=== PATIENT | female | born 1945 | race Caucasian/White ===

== ENCOUNTER 2017-11-18 19:04 | Inpatient (IN) | payer MEDICARE, MEDICAID ==
[2017-11-18 19:53] LABS: #Lymphocytes 0.8 thou/uL (1.20-3.40); #Monocytes 0.8 thou/uL (0.11-0.59); #Neutrophils 11.1 thou/uL (1.40-6.50); %Basophils 0.2 % (0.0-1.0); %Eosinophils 0.3 % (0.0-10.0); %Lymphocytes 6.3 % (21.0-51.0); %Monocytes 5.9 % (0.0-10.0); %Neutrophils 87.4 % (42.0-75.0); Hemoglobin 12.2 g/dL (12.0-16.0); Mean Corpuscular HGB CONC 33.2 g/dL (32.0-36.0); Mean Corpuscular Hemoglobin 31.1 pg (27.0-31.0); Mean Corpuscular Volume 93.8 fL (78.0-98.0); Mean Platelet Volume 7.9 fL (7.4-10.4); Platelet Count 219 thou/uL (130-400); RBC Distribution Width 12.4 % (11.5-14.5); Red Blood Cell (RBC) Count 3.91 mill/uL (4.20-5.40); White Blood Cell (WBC) Count 12.7 thou/uL (4.8-10.8)
[2017-11-18 20:13] LABS: ALT (SGPT) 11 U/L (8-55); AST (SGOT) 11 U/L (5-34); Albumin 3.6 g/dL (3.4-4.8); Alkaline Phosphatase 123 U/L (40-150); Anion Gap 14 mmol/L (10-20); BUN (Urea Nitrogen) 21 mg/dL (9.8-20.1); Bilirubin, Total 1.1 mg/dL (0.2-1.2); Calc. Creatinine Clearance 0 mL/min (70-130); Calcium 10.2 mg/dL (7.8-10.44); Carbon Dioxide 23 mmol/L (23-31); Chloride 107 mmol/L (98-107); Estimated GFR-MDRD 42; Globulin 3.7 g/dL (2.4-3.5); Glucose 165 mg/dL (83-110); Potassium 3.6 mmol/L (3.5-5.1); Protein, Total 7.3 g/dL (6.0-8.3); Sodium 140 mmol/L (136-145)
[2017-11-18 20:17] LABS: CKMB 0.2 ng/mL (0-6.6); Troponin I Less than 0.010 ng/mL (< 0.028)
[2017-11-18 20:18] LABS: Bilirubin Negative (Negative); Blood, Urine Moderate (Negative); Clarity TURBID (Clear); Glucose, Urine (Dipstick) Negative (Negative); Leukocyte Large (Negative); Nitrite Positive (Negative); Protein, Urine (Dipstick) 100 mg/dL (Neg-Trace); Specific Gravity, Urine 1.017 (1.002-1.036); pH, Urine 6.5 (5.0-9.0)
[2017-11-18 20:22] LABS: Bacteria/HPF 4+ HPF (None Seen); Hyaline Casts/LPF 4-6 HYALINE CAST LPF (0-3 Hyaline); Pathc Cast-AUWi Flag 0.69 (0-2.49); Squamous Epithelial None Seen HPF (0-3)
[2017-11-18 20:24] LABS: Yeast-AUWi Flag 140.6 (0-25.0)
[2017-11-18 20:35] LABS: Yeast-All Forms None Seen HPF (None Seen)
--- NOTE | 2017-11-18 20:55 | RAD ---
ONE VIEW CHEST 11/18/17 HISTORY: Fever. Urinary tract infection. COMPARISON: 09/09/17. FINDINGS: Normal cardiac silhouette. Pulmonary vessels and hilum are normal. Costophrenic angles are clear. No consolidation or mass. No pneumothorax or osseous abnormalities. Stable calcified granuloma in the left upper lobe. IMPRESSION: No acute cardiopulmonary process. POS: [facility]
[2017-11-18] MEDS ORDERED: cefTRIAXone\\ROCEPHIN 2 GM VIAL ONE (21:57)
[2017-11-18] MEDS ORDERED: Acetaminophen 325 MG TAB PO PRN (23:18)
[2017-11-18] MEDS ORDERED: Ondansetron HCl/PF 4 MG/2 ML Vial IVP PRN (23:18)
[2017-11-18] MEDS ORDERED: Ondansetron ODT 4 MG TAB SL PRN (23:18)
[2017-11-19] VITALS: BMI 34.0
[2017-11-19 06:06] LABS: #Eosinphils 0.1 thou/uL (0.0-0.7); #Lymphocytes 0.8 thou/uL (1.20-3.40); #Monocytes 0.8 thou/uL (0.11-0.59); #Neutrophils 8.7 thou/uL (1.40-6.50); %Basophils 0.3 % (0.0-1.0); %Eosinophils 0.6 % (0.0-10.0); %Monocytes 7.9 % (0.0-10.0); %Neutrophils 83.2 % (42.0-75.0); Hemoglobin 11.3 g/dL (12.0-16.0); Mean Corpuscular HGB CONC 33.2 g/dL (32.0-36.0); Mean Corpuscular Hemoglobin 30.8 pg (27.0-31.0); Mean Corpuscular Volume 92.7 fL (78.0-98.0); Mean Platelet Volume 8.1 fL (7.4-10.4); Platelet Count 201 thou/uL (130-400); RBC Distribution Width 12.5 % (11.5-14.5); Red Blood Cell (RBC) Count 3.68 mill/uL (4.20-5.40); White Blood Cell (WBC) Count 10.4 thou/uL (4.8-10.8)
[2017-11-19 06:09] LABS: Anion Gap 12 mmol/L (10-20); BUN (Urea Nitrogen) 18 mg/dL (9.8-20.1); Calc. Creatinine Clearance 75 mL/min (70-130); Carbon Dioxide 24 mmol/L (23-31); Chloride 109 mmol/L (98-107); Estimated GFR-MDRD 55; Glucose 133 mg/dL (83-110); Potassium 3.6 mmol/L (3.5-5.1); Sodium 141 mmol/L (136-145)
[2017-11-19] MEDS: Sodium Chloride 0.9% 1,000 ML IV SCH ×2 (06:35→16:11)
[2017-11-19] MEDS: Atorvastatin Calcium 20 MG TAB PO SCH (08:27)
[2017-11-19] MEDS: Aspirin 81 mg Enteric Coated Tablet PO SCH (08:27)
[2017-11-19] MEDS: Docusate 100 MG CAP PO SCH ×2 (08:27→20:20)
[2017-11-19] MEDS: Heparin 5,000 UNITS/ML VIAL SC SCH ×3 (08:27→20:20)
[2017-11-19] MEDS: Calcium Carbonate + Vit D 1 TAB PO SCH ×2 (08:27→20:20)
--- NOTE | 2017-11-19 12:09 | HP ---
CHIEF COMPLAINT: Fever. HISTORY OF PRESENT ILLNESS: The patient is a 72-year-old female with past medical history of hyperte nsion and UTIs, who [facility] with a fever of 101.9. The patient is a poor hist orian and most of the history is obtained from the records. The patient currently is unable to provi de any information. PAST MEDICAL HISTORY: History of GERD, hypertension, dementia, and UTI. PAST SURGICAL HISTORY: None. REVIEW OF SYSTEMS: Unable to obtain since the patient has history of dementia. ALLERGIES: No known drug allergies. SOCIAL HISTORY: [facility] a [facility] resident. No alcohol, drug use or smoking history. CURRENT MEDICATIONS: From the records, Tylenol 325 daily, Lasix 20 mg daily. PHYSICAL EXAMINATION: VITAL SIGNS: Temperature of 101.8 this is in the ER, respirations of 16, pulse of 105, 97% on room a ir, and blood pressure was 139/80. GENERAL: She is awake, alert, oriented only to self. CARDIOVASCULAR: S1, S2 present. No murmurs, rubs or gallops. HEENT: The patient appears to be very severely dehydrated. Oral mucous membranes are very dehydrate d. LUNGS: Clear to auscultation. No rhonchi, wheezes noted. ABDOMEN: Soft, nontender. Bowel sounds are present x2. No hepatomegaly, splenomegaly noted. EXTREMITIES: No edema. Pedal pulses present x2. NEUROLOGIC: I initially thought that she did have some weakness on her left upper extremity; however , the patient has a pretty good tattooer on her bilateral upper extremities. LABORATORY DATA: WBCs of 10.4, hemoglobin 11.3, hematocrit 34.1, platelets of 201. Chemistry: S[place] um 141, potassium of 3.6, BUN of 18 and creatinine 0.99, glucose of 133. Her urine indicated positiv e for nitrites. She did also have a chest x-ray which did not show any acute abnormalities upon my i nterpretation. ASSESSMENT AND PLAN: The patient is a very pleasant 72-year-old female who was [facility] the hosp [facility] for fever. 1. Urinary tract infection. The patient does have positive nitrites. Her last urine culture indica campbell E. coli, which was sensitive to ceftriaxone. We will start patient on ceftriaxone. We will also start the patient on some gentle IV hydration and await cultures. 2. Dehydration. We will start the patient on some IV fluids. Continue to monitor. 3. History of dementia. We will also order some physical therapy and occupational therapy. 4. Deep venous thrombosis prophylaxis. We will put patient on subcu heparin.
--- NOTE | 2017-11-19 13:03 | PDOC.EVN ---
Event Note - Event Note Event Note: 72 F with a h/o dementia brought to the emergency room on account of fever and dehydration and found to have UTI. Has been started on hydration and IV ceftriaxone. Seen and examined. Will follow up cultures. Patient hemodynamically stable.
[2017-11-19] MEDS ORDERED: Acetaminophen 650 MG Suppository PR PRN (15:52)
[2017-11-19] MEDS: Acetaminophen 325 MG TAB PO PRN (16:10)
[2017-11-19] MEDS: Piperacillin/Tazobactam 3.375 GM in Sodium Chloride 0.9% 100 ML IVPB SCH ×2 (16:10→20:20)
[2017-11-19] MEDS ORDERED: cefTRIAXone\\ROCEPHIN 1 GM in Sodium Chloride 0.9% 100 ML IVPB SCH (21:00)
[2017-11-20] MEDS: Piperacillin/Tazobactam 3.375 GM in Sodium Chloride 0.9% 100 ML IVPB SCH (03:38)
[2017-11-20] MEDS: Sodium Chloride 0.9% 1,000 ML IV SCH ×3 (03:38→23:52)
[2017-11-20] MEDS: Acetaminophen 325 MG TAB PO PRN (04:40)
[2017-11-20] MEDS ORDERED: Artificial Tears 18 DROP/0.9 ML EA EYE PRN (08:05)
[2017-11-20] MEDS ORDERED: Mag-Al 1200 mg/1200 mg/30 ML UDCUP PO PRN (08:05)
[2017-11-20] MEDS ORDERED: Ondansetron HCl/PF 4 MG/2 ML Vial IVP PRN (08:05)
[2017-11-20] MEDS ORDERED: Zolpidem Tartrate 5 MG TAB PO PRN (08:05)
[2017-11-20] MEDS ORDERED: Eucerin (Mineral Oil/Petrolatum,White) 30 gm Jar TOP PRN (08:05)
[2017-11-20] MEDS ORDERED: Chloraseptic Spray 180 ml Bottle PO PRN (08:05)
[2017-11-20] MEDS ORDERED: HYDROcodone/Acetaminophen 5/325 mg Tablet PO PRN (08:05)
[2017-11-20] MEDS ORDERED: Sodium Chloride 0.65% Nasal 44 ML BOT EA NARE PRN (08:05)
[2017-11-20] MEDS ORDERED: Ondansetron ODT 4 MG TAB PO PRN (08:05)
[2017-11-20] MEDS ORDERED: Milk Of Magnesia 30 ML UDCUP PO PRN (08:05)
[2017-11-20] MEDS ORDERED: Diabetic Tussin 200 MG/10 ML UDCUP PO PRN (08:05)
[2017-11-20] MEDS ORDERED: hydrALAZINE 20 MG/ML VIAL SLOW IVP PRN (08:05)
[2017-11-20] MEDS ORDERED: Loratadine 10 MG TAB PO PRN (08:05)
[2017-11-20] MEDS: Docusate 100 MG CAP PO SCH ×2 (09:00→21:25)
[2017-11-20] MEDS: Saccharomyces boulardii 250 MG CAP PO SCH (09:00)
[2017-11-20] MEDS: Atorvastatin Calcium 20 MG TAB PO SCH (09:00)
[2017-11-20] MEDS: Polyethylene Glycol 3350 17 GM Packet PO SCH (09:00)
[2017-11-20] MEDS: Famotidine 20 MG TAB PO SCH ×2 (09:00→21:25)
[2017-11-20] MEDS ORDERED: Prevnar 13-Val Conj/PF 0.5 ML SYRINGE IM ONE (09:00)
[2017-11-20] MEDS: Heparin 5,000 UNITS/ML VIAL SC SCH ×2 (09:00→21:25)
[2017-11-20] MEDS: Aspirin 81 mg Enteric Coated Tablet PO SCH (09:00)
[2017-11-20] MEDS: Calcium Carbonate + Vit D 1 TAB PO SCH ×2 (09:00→21:25)
--- NOTE | 2017-11-20 11:19 | PDOC.PN ---
- Subjective Encounter Start Date: 11/20/17 Encounter Start Time: 07:20 -: old records requested/rev Patient seen and examined for uti. No new complaints. No overnight events - Objective Resuscitation Status: Resuscitation Status FULL:Full Resuscitation MAR Reviewed: Yes Vital Signs & Weight: Vital Signs (12 hours) Temp Pulse Resp BP Pulse Ox 11/20/17 08:50 98.8 F 88 22 H 132/57 L 96 11/20/17 04:00 101.7 F H 91 16 135/70 95 Weight Weight 207 lb 1.6 oz I&O: 11/19/17 11/20/17 11/21/17 06:59 06:59 06:59 Intake Total 100 1600 Balance 100 1600 Result Diagrams: 11/19/17 05:26 11/19/17 05:26 EKG Reviewed by me: Yes (nsr) Phys Exam - Physical Examination Constitutional: NAD HEENT: PERRLA, moist MMs, sclera anicteric Neck: no JVD, supple Respiratory: no wheezing, no rales, no rhonchi Cardiovascular: RRR, no significant murmur, no rub Gastrointestinal: soft, non-tender, no distention, positive bowel sounds umbilical hernia Musculoskeletal: no edema, pulses present Neurological: non-focal, normal sensation Psychiatric: normal affect Skin: no rash, normal turgor Dx/Plan (1) Acute kidney injury Code(s): N17.9 - ACUTE KIDNEY FAILURE, UNSPECIFIED Status: Acute (2) Bacteremia, escherichia coli Code(s): R78.81 - BACTEREMIA Status: Acute (3) Dehydration Code(s): E86.0 - DEHYDRATION Status: Acute (4) E. coli UTI Code(s): N39.0 - URINARY TRACT INFECTION, SITE NOT SPECIFIED; B96.20 - UNSP ESCHERICHIA COLI THE CAUSE OF DISEASES CLASSD ELSWHR Status: Acute (5) Sepsis due to Escherichia coli Code(s): A41.51 - SEPSIS DUE TO ESCHERICHIA COLI [E. COLI] Status: Acute (6) Dyslipidemia Code(s): E78.5 - HYPERLIPIDEMIA, UNSPECIFIED Status: Chronic (7) Hypertension Code(s): I10 - ESSENTIAL (PRIMARY) HYPERTENSION Status: Chronic (8) Obesity (BMI 30-39.9) Code(s): E66.9 - OBESITY, UNSPECIFIED Status: Chronic - Plan cont current plan of care, plan discussed w/ family, continue antibiotics * will change antibiotics to IV cipro based on C & S result * discussed with brother on phone * medication reviewed as below * symptomatic treatment * will repeat blood culture tomorrow and labs. Review of Systems - Review of Systems Other: not reliable with pt based on her level of cognitive status which seems baseline for pt - Medications/Allergies Allergies/Adverse Reactions: Allergies Allergy/AdvReac Type Severity Reaction Status Date / Time No Known Drug Allergies Allergy Verified 11/19/17 01:53 Medications: Current Medications Acetaminophen (Tylenol) 650 mg [place] Q4H PRN PRN Reason: Headache/Fever or Pain Acetaminophen (Tylenol) 650 mg PO Q6H PRN PRN Reason: Fever > 101 Last Admin: 11/20/17 04:40 Dose: 650 mg Hydrocodone Bitart/Acetaminophen ([place] 5/325) 1 tab PO Q4H PRN PRN Reason: Moderate Pain (4-6) Al Hydroxide/Mg Hydroxide (Maalox) 15 ml PO Q4H PRN PRN Reason: Heartburn or Indigestion Artificial Tears (Tears Naturale) 0 drop EA EYE PRN PRN PRN Reason: Dry Eyes Aspirin (Ecotrin) 81 mg PO DAILY [facility] Last Admin: 11/20/17 09:00 Dose: 81 mg Atorvastatin Calcium (Lipitor) 20 mg PO DAILY [facility] Last Admin: 11/20/17 09:00 Dose: 20 mg Calcium/Vitamin D (Caltrate 600 + Vit D) 1 tab PO BID [facility] Last Admin: 11/20/17 09:00 Dose: 1 tab Docusate Sodium (Colace) 100 mg PO BID [facility] Last Admin: 11/20/17 09:00 Dose: 100 mg Famotidine (Pepcid) 20 mg PO BID [facility] Last Admin: 11/20/17 09:00 Dose: 20 mg Guaifenesin (Robitussin Sf) 200 mg PO Q4H PRN PRN Reason: Cough Heparin Sodium (Porcine) (Heparin) 5,000 units SC BID [facility] Last Admin: 11/20/17 09:00 Dose: 5,000 units Hydralazine HCl (Apresoline) 10 mg SLOW IVP Q4H PRN PRN Reason: Systolic BP > 180 Sodium Chloride (Normal Saline 0.9%) 1,000 mls @ 100 mls/hr IV .Q10H [facility] Last Admin: 11/20/17 03:38 Dose: 1,000 mls Ciprofloxacin/Dextrose 400 mg/ (Device) 200 mls @ 200 mls/hr IVPB Q12HR [facility] Last Admin: 11/20/17 09:00 Dose: 200 mls Loratadine (Claritin) 10 mg PO DAILYPRN PRN PRN Reason: Sinus Symptoms Magnesium Hydroxide (Milk Of Magnesium) 30 ml PO DAILYPRN PRN PRN Reason: Constipation Mineral Oil/White Petrolatum (Eucerin Cream) 0 gm TOP BIDPRN PRN PRN Reason: Dry Skin Ondansetron HCl (Zofran Odt) 4 mg PO Q6H PRN PRN Reason: Nausea/Vomiting Ondansetron HCl (Zofran) 4 mg IVP Q6H PRN PRN Reason: Nausea/Vomiting Phenol (Chloraseptic [place] 180 Ml Bot) 0 ml PO PRN PRN PRN Reason: Sore Throat Polyethylene Glycol (Miralax) 17 gm PO DAILY [facility] Last Admin: 11/20/17 09:00 Dose: 17 gm Saccharomyces Boulardii (Florastor) 250 mg PO DAILY [facility] Last Admin: 11/20/17 09:00 Dose: 250 mg Sodium Chloride (Flush - Normal Saline) 10 ml IVF Q12HR [facility] Last Admin: 11/20/17 09:00 Dose: Not Given Sodium Chloride (Flush - Normal Saline) 10 ml IVF PRN PRN PRN Reason: Saline Flush Sodium Chloride ([place] Nasal [place] 0.65%) 0 ml EA NARE QIDPRN PRN PRN Reason: Nasal Congestion Zolpidem Tartrate (Ambien) 5 mg PO HSPRN PRN PRN Reason: Insomnia
[2017-11-21 05:51] LABS: #Eosinphils 0.2 thou/uL (0.0-0.7); #Lymphocytes 1.2 thou/uL (1.20-3.40); #Monocytes 0.7 thou/uL (0.11-0.59); #Neutrophils 4.4 thou/uL (1.40-6.50); %Basophils 0.6 % (0.0-1.0); %Eosinophils 3.3 % (0.0-10.0); %Lymphocytes 18.5 % (21.0-51.0); %Monocytes 11.2 % (0.0-10.0); %Neutrophils 66.5 % (42.0-75.0); Hemoglobin 11.1 g/dL (12.0-16.0); Mean Corpuscular HGB CONC 32.6 g/dL (32.0-36.0); Mean Corpuscular Hemoglobin 29.7 pg (27.0-31.0); Platelet Count 262 thou/uL (130-400); RBC Distribution Width 12.2 % (11.5-14.5); Red Blood Cell (RBC) Count 3.75 mill/uL (4.20-5.40); White Blood Cell (WBC) Count 6.6 thou/uL (4.8-10.8)
[2017-11-21 06:00] LABS: ALT (SGPT) 22 U/L (8-55); AST (SGOT) 20 U/L (5-34); Albumin 3.2 g/dL (3.4-4.8); Alkaline Phosphatase 193 U/L (40-150); Anion Gap 12 mmol/L (10-20); BUN (Urea Nitrogen) 10 mg/dL (9.8-20.1); Bilirubin, Total 0.7 mg/dL (0.2-1.2); Calc. Creatinine Clearance 85 mL/min (70-130); Calcium 9.3 mg/dL (7.8-10.44); Carbon Dioxide 23 mmol/L (23-31); Chloride 109 mmol/L (98-107); Estimated GFR-MDRD 62; Globulin 3.6 g/dL (2.4-3.5); Glucose 108 mg/dL (83-110); Protein, Total 6.8 g/dL (6.0-8.3); Sodium 141 mmol/L (136-145)
[2017-11-21 06:06] LABS: Potassium 2.9 mmol/L (3.5-5.1)
[2017-11-21] MEDS: Potassium Chloride 20 MEQ TAB PO SCH ×2 (06:27→10:14)
[2017-11-21] MEDS: Aspirin 81 mg Enteric Coated Tablet PO SCH (08:34)
[2017-11-21] MEDS: Atorvastatin Calcium 20 MG TAB PO SCH (08:34)
[2017-11-21] MEDS: Calcium Carbonate + Vit D 1 TAB PO SCH ×2 (08:34→20:38)
[2017-11-21] MEDS: Docusate 100 MG CAP PO SCH ×2 (08:35→20:38)
[2017-11-21] MEDS: Saccharomyces boulardii 250 MG CAP PO SCH (08:35)
[2017-11-21] MEDS: Polyethylene Glycol 3350 17 GM Packet PO SCH (08:35)
[2017-11-21] MEDS: Famotidine 20 MG TAB PO SCH ×2 (08:35→20:38)
[2017-11-21] MEDS: Heparin 5,000 UNITS/ML VIAL SC SCH ×2 (08:35→20:38)
[2017-11-21] MEDS: Sodium Chloride 0.9% 1,000 ML IV SCH ×2 (08:42→17:17)
--- NOTE | 2017-11-21 10:06 | PDOC.PN ---
- Subjective Encounter Start Date: 11/21/17 Encounter Start Time: 07:20 Patient seen and examined for bacteremia. No new complaints. No overnight events - Objective Resuscitation Status: Resuscitation Status FULL:Full Resuscitation MAR Reviewed: Yes Vital Signs & Weight: Vital Signs (12 hours) Temp Pulse Resp BP Pulse Ox 11/21/17 04:00 97.8 F 80 18 143/78 H 92 L Weight Weight 207 lb 1.6 oz I&O: 11/20/17 11/21/17 11/22/17 06:59 06:59 06:59 Intake Total 1600 4674 Balance 1600 4674 Result Diagrams: 11/21/17 05:26 11/21/17 05:26 EKG Reviewed by me: Yes (nsr) Phys Exam - Physical Examination Constitutional: NAD HEENT: PERRLA, moist MMs, sclera anicteric Neck: no JVD, supple Respiratory: no wheezing, no rales, no rhonchi Cardiovascular: RRR, no significant murmur, no rub Gastrointestinal: soft, non-tender, no distention, positive bowel sounds Musculoskeletal: no edema, pulses present Neurological: non-focal, normal sensation Lymphatic: no nodes Psychiatric: normal affect, A&O x 3 Skin: no rash, normal turgor Dx/Plan (1) Acute kidney injury Code(s): N17.9 - ACUTE KIDNEY FAILURE, UNSPECIFIED Status: Acute (2) Bacteremia, escherichia coli Code(s): R78.81 - BACTEREMIA Status: Acute (3) Dehydration Code(s): E86.0 - DEHYDRATION Status: Acute (4) E. coli UTI Code(s): N39.0 - URINARY TRACT INFECTION, SITE NOT SPECIFIED; B96.20 - UNSP ESCHERICHIA COLI THE CAUSE OF DISEASES CLASSD ELSWHR Status: Acute (5) Sepsis due to Escherichia coli Code(s): A41.51 - SEPSIS DUE TO ESCHERICHIA COLI [E. COLI] Status: Acute (6) Dyslipidemia Code(s): E78.5 - HYPERLIPIDEMIA, UNSPECIFIED Status: Chronic (7) Hypertension Code(s): I10 - ESSENTIAL (PRIMARY) HYPERTENSION Status: Chronic (8) Obesity (BMI 30-39.9) Code(s): E66.9 - OBESITY, UNSPECIFIED Status: Chronic - Plan cont current plan of care, continue antibiotics * DC tele * transfer to medical * continue IV cipro * medication reviewed as below * symptomatic treatment. Review of Systems - Review of Systems Eyes: negative: Pain, Vision Change, Conjunctivae Inflammation, Eyelid Inflammation, Redness, Other ENT: negative: Ear Pain, Ear Discharge, Nose Pain, Nose Discharge, Nose Congestion, Mouth Pain, Mouth Swelling, Throat Pain, Throat Swelling, Other Respiratory: negative: Cough, Dry, Shortness of Breath, Hemoptysis, SOB with Excertion, Pleuritic Pain, Sputum, Wheezing Cardiovascular: negative: chest pain, palpitations, orthopnea, paroxysmal nocturnal dyspnea, edema, light headedness, other Gastrointestinal: negative: Nausea, Vomiting, Abdominal Pain, Diarrhea, Constipation, Melena, Hematochezia, Other Genitourinary: negative: Dysuria, Frequency, Incontinence, Hematuria, Retention , Other Musculoskeletal: negative: Neck Pain, Shoulder Pain, Arm Pain, Back Pain, Hand Pain, Leg Pain, Foot Pain, Other Skin: negative: Rash, Lesions, Yobani, Bruising, Other Other: not reliable due to level of cognitive status - Medications/Allergies Allergies/Adverse Reactions: Allergies Allergy/AdvReac Type Severity Reaction Status Date / Time No Known Drug Allergies Allergy Verified 11/19/17 01:53 Medications: Current Medications Acetaminophen (Tylenol) 650 mg [place] Q4H PRN PRN Reason: Headache/Fever or Pain Acetaminophen (Tylenol) 650 mg PO Q6H PRN PRN Reason: Fever > 101 Last Admin: 11/20/17 04:40 Dose: 650 mg Hydrocodone Bitart/Acetaminophen ([place] 5/325) 1 tab PO Q4H PRN PRN Reason: Moderate Pain (4-6) Al Hydroxide/Mg Hydroxide (Maalox) 15 ml PO Q4H PRN PRN Reason: Heartburn or Indigestion Artificial Tears (Tears Naturale) 0 drop EA EYE PRN PRN PRN Reason: Dry Eyes Aspirin (Ecotrin) 81 mg PO DAILY [facility] Last Admin: 11/21/17 08:34 Dose: 81 mg Atorvastatin Calcium (Lipitor) 20 mg PO DAILY [facility] Last Admin: 11/21/17 08:34 Dose: 20 mg Calcium/Vitamin D (Caltrate 600 + Vit D) 1 tab PO BID [facility] Last Admin: 11/21/17 08:34 Dose: 1 tab Docusate Sodium (Colace) 100 mg PO BID [facility] Last Admin: 11/21/17 08:35 Dose: 100 mg Famotidine (Pepcid) 20 mg PO BID [facility] Last Admin: 11/21/17 08:35 Dose: 20 mg Guaifenesin (Robitussin Sf) 200 mg PO Q4H PRN PRN Reason: Cough Heparin Sodium (Porcine) (Heparin) 5,000 units SC BID [facility] Last Admin: 11/21/17 08:35 Dose: 5,000 units Hydralazine HCl (Apresoline) 10 mg SLOW IVP Q4H PRN PRN Reason: Systolic BP > 180 Sodium Chloride (Normal Saline 0.9%) 1,000 mls @ 100 mls/hr IV .Q10H [facility] Last Admin: 11/21/17 08:42 Dose: 1,000 mls Ciprofloxacin/Dextrose 400 mg/ (Device) 200 mls @ 200 mls/hr IVPB Q12HR [facility] Last Admin: 11/20/17 21:24 Dose: 200 mls Loratadine (Claritin) 10 mg PO DAILYPRN PRN PRN Reason: Sinus Symptoms Magnesium Hydroxide (Milk Of Magnesium) 30 ml PO DAILYPRN PRN PRN Reason: Constipation Mineral Oil/White Petrolatum (Eucerin Cream) 0 gm TOP BIDPRN PRN PRN Reason: Dry Skin Ondansetron HCl (Zofran Odt) 4 mg PO Q6H PRN PRN Reason: Nausea/Vomiting Ondansetron HCl (Zofran) 4 mg IVP Q6H PRN PRN Reason: Nausea/Vomiting Phenol (Chloraseptic [place] 180 Ml Bot) 0 ml PO PRN PRN PRN Reason: Sore Throat Polyethylene Glycol (Miralax) 17 gm PO DAILY [facility] Last Admin: 11/21/17 08:35 Dose: 17 gm Potassium Chloride (K-Dur) 40 meq PO 0630,1030 [facility] Stop: 11/21/17 10:31 Last Admin: 11/21/17 06:27 Dose: 40 meq Saccharomyces Boulardii (Florastor) 250 mg PO DAILY [facility] Last Admin: 11/21/17 08:35 Dose: 250 mg Sodium Chloride (Flush - Normal Saline) 10 ml IVF Q12HR [facility] Last Admin: 11/21/17 08:35 Dose: 10 ml Sodium Chloride (Flush - Normal Saline) 10 ml IVF PRN PRN PRN Reason: Saline Flush Sodium Chloride ([place] Nasal [place] 0.65%) 0 ml EA NARE QIDPRN PRN PRN Reason: Nasal Congestion Zolpidem Tartrate (Ambien) 5 mg PO HSPRN PRN PRN Reason: Insomnia
[2017-11-22] MEDS: Polyethylene Glycol 3350 17 GM Packet PO SCH (08:08)
[2017-11-22] MEDS: Docusate 100 MG CAP PO SCH (08:08)
[2017-11-22] MEDS: Calcium Carbonate + Vit D 1 TAB PO SCH (08:08)
[2017-11-22] MEDS: Aspirin 81 mg Enteric Coated Tablet PO SCH (08:08)
[2017-11-22] MEDS: Famotidine 20 MG TAB PO SCH (08:08)
[2017-11-22] MEDS: Saccharomyces boulardii 250 MG CAP PO SCH (08:08)
[2017-11-22] MEDS: Atorvastatin Calcium 20 MG TAB PO SCH (08:08)
[2017-11-22] MEDS: Sodium Chloride 0.9% 1,000 ML IV SCH ×2 (08:09→13:43)
[2017-11-22] MEDS: Heparin 5,000 UNITS/ML VIAL SC SCH (08:09)
[2017-11-22] MEDS ORDERED: Amlodipine 5 MG TAB PO SCH (09:00)
[2017-11-22 09:09] LABS: Anion Gap 13 mmol/L (10-20); BUN (Urea Nitrogen) 10 mg/dL (9.8-20.1); Calc. Creatinine Clearance 84 mL/min (70-130); Carbon Dioxide 23 mmol/L (23-31); Chloride 109 mmol/L (98-107); Estimated GFR-MDRD 63; Glucose 124 mg/dL (83-110); Potassium 3.5 mmol/L (3.5-5.1); Sodium 141 mmol/L (136-145)
--- NOTE | 2017-11-22 11:53 | DIS ---
DATE OF ADMISSION: 11/18/2017 DATE OF DISCHARGE: 11/22/2017 PRIMARY CARE PHYSICIAN: Yan Thomas M.D. DISCHARGE DISPOSITION: care home home. PRIMARY DISCHARGE DIAGNOSES: 1. Sepsis due to Escherichia coli. 2. Escherichia coli urinary tract infection. 3. Bacteremia due to Escherichia coli. 4. Dehydration. SECONDARY DISCHARGE DIAGNOSES: Hypertension, dyslipidemia, obesity, Alzheimer's-type of dementia, ph ysical deconditioning. PRIMARY PROCEDURE/OPERATION: None. RADIOLOGICAL INVESTIGATION: Chest x-ray was normal. SIGNIFICANT LABORATORY DATA: WBC 6.6, hemoglobin 11.1, platelets 262. Sodium 141, potassium 3.5, BU N 10, creatinine 0.88, calcium 10.0. LFTs: AST 22, ALT 22, alkaline phosphatase is 193, albumin 3.2 . Urinalysis suggestive of UTI. Urine culture grew E. coli. Blood culture was positive for E. coli . Repeat blood culture negative. DISCHARGE MEDICATIONS: Amlodipine 5 mg p.o. daily, aspirin 81 mg p.o. daily, Lipitor 20 mg p.o. maddison y, calcium with vitamin D 1 tablet p.o. b.i.d., Cipro 500 mg p.o. b.i.d. for 14 days, MiraLax 17 gram s p.o. daily. CONTRAINDICATIONS: None. CODE STATUS: FULL CODE. INPATIENT CONSULTANTS: None. ALLERGIES: No known drug allergy. DISCHARGE PLAN: Post hospital, the patient will follow up with Dr. Yan Thomas in 1 week. HOSPITAL COURSE: A 72-year-old female with above-mentioned medical problem, who was admitted by Dr. Becca Becerril. Please see her H and P for further detail. [facility] for [facility]. She was not able to provide any history, because of dementia. She had abnormal urinalysis, which was consistent with UTI. The patient had leukocytosis. The pat ient also had hypokalemia while in hospital, which was corrected. Patient was admitted to telemetry floor. She was treated with broad-spectrum antibiotic therapy. [place] bsequently, based on culture and sensitivity result, we changed to IV Cipro. We transferred her to edical floor. She had positive blood culture and positive urine culture, and subsequently, we did a repeat surveillance culture that was negative by the time of dictation. Patient will finish 15 days' course of ciprofloxacin at [facility]. While in hospital, she is afebrile and hemodynamically stable. She will continue all her home medica tion. She was found with high blood pressure and that is why we are starting amlodipine. Rest of me dication was continued as per previous. The patient is seen and examined at bedside today. Paper work for discharge done. Discharge medicat ion reconciliation done today. PHYSICAL EXAMINATION: VITAL SIGNS: Today, temperature 98.6, pulse 85, respiratory rate 16, saturation 97%, blood pressure 158/99, weight 202 pounds. GENERAL: The patient is currently alert, awake, baseline demented. HEAD: Normocephalic, atraumatic. EYES: Pupils round, reactive to light. Extraocular muscle intact. ENT: Oropharynx within normal limits. Moist mucous membranes. No oral lesion, no pharyngeal erythe ma, no exudate. NECK: Supple, no JVD, no thyromegaly, no carotid bruit. LUNGS: Clear to auscultation without any rhonchi or rales. CARDIAC: S1 and S2 regular without any significant murmur. ABDOMEN: Soft and benign. EXTREMITIES: No edema. NEUROLOGIC: Nonfocal examination. Overall, patient is medically stable for discharge. Total time spent on discharge day 31 minutes.
[2017-11-22 16:05] VITALS: BP 189/86; TEMP 98.5
== END 2017-11-22 18:09 | DRG 872 ==
LOC: ERS 19:04 → 2NO 22:05 → T4-A 11-21 11:02
PROVIDERS: ADMIT Internal Medicine; ATTEND Internal Medicine
DX: A41.51 Sepsis due to Escherichia coli [E. coli] (principal); N39.0 Urinary tract infection, site not specified; N17.9 Acute kidney failure, unspecified; B96.20 Unspecified Escherichia coli [E. coli] as the cause of diseases classified elsewhere; E86.0 Dehydration; I10 Essential (primary) hypertension; E78.5 Hyperlipidemia, unspecified; E66.9 Obesity, unspecified; Z68.33 Body mass index [BMI] 33.0-33.9, adult; G30.9 Alzheimer's disease, unspecified; F02.80 Dementia in other diseases classified elsewhere, unspecified severity, without behavioral disturbance, psychotic disturbance, mood disturbance, and anxiety; E87.6 Hypokalemia
CPT/HCPCS: 36415; 36416; 51701; 71045; 80048; 80053; 81003; 81015; 82553; 83605; 83735; 84484; 85025; 87040; 87077; 87086; 87149; 87186; 96361; 96374; A4216; A4353; G8978-GP-CM; G8979-GP-CK; G8996-GN-CH; G8997-GN-CH; J0360; J0696; J0744; J1644; J2543; J7050

== ENCOUNTER 2018-05-13 11:33 | Inpatient (IN) | payer MEDICARE, MEDICAID ==
[2018-05-13 13:05] VITALS: BMI 32.4
[2018-05-13] MEDS ORDERED: Zolpidem Tartrate 5 MG TAB PO PRN (14:07)
[2018-05-13] MEDS ORDERED: Ondansetron PF 4 MG/2 ML Vial IVP PRN (14:07)
--- NOTE | 2018-05-13 14:26 | PDOC.EVN ---
Event Note - Event Note Event Note: H&P dictated #[id number]
[2018-05-13] MEDS: Sodium Chloride 0.9% 1,000 ML IV SCH (15:17)
[2018-05-13 15:26] LABS: Bilirubin Negative (Negative); Blood, Urine Moderate (Negative); Clarity TURBID (Clear); Glucose, Urine (Dipstick) Negative (Negative); Leukocyte Large (Negative); Nitrite Negative (Negative); Protein, Urine (Dipstick) 30 mg/dL (Neg-Trace); Specific Gravity, Urine 1.011 (1.002-1.036)
[2018-05-13 15:34] LABS: Hyaline Casts/LPF 0-3 HYALINE CAST LPF (0-3 Hyaline); Pathc Cast-AUWi Flag 0.33 (0-2.49); Squamous Epithelial 0-3 HPF (0-3)
[2018-05-13 15:36] LABS: Yeast-AUWi Flag 27.1 (0-25.0)
[2018-05-13 15:51] LABS: Bacteria/HPF 2+ HPF (None Seen); Yeast-All Forms None Seen HPF (None Seen)
[2018-05-13] MEDS: Acetaminophen 325 MG TAB PO PRN (21:16)
[2018-05-13] MEDS: Famotidine 20 MG TAB PO SCH (21:16)
--- NOTE | 2018-05-13 22:10 | HP ---
CHIEF COMPLAINT: Transfer from outside service. HISTORY OF PRESENT ILLNESS: This is a 72-year-old female, who had initially presented to [facility] for altered mental status. She was admitted there for 24 hours, was noted to have an obstructive nephropathy with 8 mm stone causing hydronephrosis, was started on IV antibiotics. White count was found to be elevated; however, were trending down. At point in time of transfer here to our hospital for higher level of care management for her kidney stone and sepsis. The patient is alert and oriented to person only, unable to provide a history and no family available. An individual named Rene is apparently a friend or a family member and attempts are being made to reach out to him, currently unavailable. PAST MEDICAL HISTORY: Per record review, dementia, hypertension, hyperlipidemia, obesity as well as recurrent UTIs and kidney stones. HOME MEDICATIONS: See JUL. ALLERGIES: NO KNOWN DRUG ALLERGIES. REVIEW OF SYSTEMS: Not possible given patient's mental status changes. PHYSICAL EXAMINATION: VITAL SIGNS: Blood pressure was 108/98, temperature 98, respiratory rate 18, heart rate of 88. GENERAL: In no acute distress. HEENT: Pupils equal, round, reactive to light and accommodation. Extraocular muscles intact. Oral cavity appears slightly dry and pink. NECK: Supple, palpable mobile thyroid. LUNGS: Clear to auscultation bilaterally. No respiratory distress. HEART: Regular rate and rhythm. S1, S2. No murmurs, rubs, or gallops appreciated. ABDOMEN: Positive bowel sounds. Soft, nontender. EXTREMITIES: 2+ peripheral pulses, trace edema noted, bilateral lower extremities. NEUROLOGICAL: Cranial nerves II through XII intact. Alert and oriented to person only. Answering some questions appropriately, some not. LABORATORY DATA: No current data available. Lab work history from prior records from the other hospital reflect a white count trending down with last count was 14. Acute kidney injury trending downwards and CT scan shows kidney stone, obstructing, 8 mm as well as multiple nonobstructing calcifications in the kidney. ASSESSMENT: 1. Urinary tract infection with sepsis. 2. Nephrolithiasis. 3. Dementia/altered mental status. 4. Hyperlipidemia. 5. Hypertension. 6. Fevers. PLAN: 1. At this point in time, we will start the patient on Levaquin for antibiotics, we will also provide normal saline. 2. N.p.o. for now. 3. Stat consult to Urology. 4. Labs. 5. No family available. Default code status will be a full code. We will discuss code status about DNR/DNI once family arrives. 6. SCDs for DVT prophylaxis. Job ID: [id number]
--- NOTE | 2018-05-14 00:35 | CON ---
DATE OF CONSULTATION: 05/13/2018 REASON FOR CONSULTATION: 1. Acute kidney injury. 2. Altered mental status with apparent sepsis. 3. Urinary tract infection. 4. Right-sided 8 mm obstructing ureteral calculus. HISTORY OF PRESENT ILLNESS: Ms. Ling Toledo is a pleasant 72-year-old white female with longstanding history of multiple sclerosis as well as dementia. The patient was admitted on this admission due to apparent sepsis related complications and finding of an 8 mm obstructing right ureteral calculus. The patient is normally residing in the [facility] and has done well there. She requires assistance for all of her daily activities of living. The patient is nonambulatory, but can be move by wheelchair. She had urosepsis from E coli in 10/2017, has not established with urologist. The patient on this admission was noted to have a marked reduction in her estimated glomerular filtration rate and have elevated white blood cell count as well as dirty urine. The patient's urine demonstrates presence of nitrites and white blood cells are too numerous to count. The patient specifically denies any pain symptoms, but on CT scan, there is an obstructing right-sided ureteral calculus measuring 8 mm. PAST MEDICAL HISTORY: 1. Past urosepsis, secondary to E coli with positive blood cultures from 11/18/2017 to 12/19/2017. 2. Multiple sclerosis with nonambulatory status. 3. Dementia. 4. Hypertension. 5. Hyperlipidemia. 6. Osteoporosis. 7. Venous insufficiency. 8. Chronic constipation. PAST SURGICAL HISTORY: Fracture of the left ankle requiring open reduction and internal fixation in 2007. ALLERGIES: NO KNOWN DRUG ALLERGIES. MEDICATIONS: Complete medication list includes the following; 1. Aspirin 81 mg p.o. daily. 2. Chlorhexidine concentrate swish and spit out twice daily. 3. Guaifenesin 10 mL q.4 hours as needed for cough. 4. Caltrate with D 600/400 twice daily. 5. Cymbalta 60 mg daily. 6. Lasix 20 mg per day. 7. MiraLAX 17 g p.o. daily. 8. Dulcolax suppository. 9. Atorvastatin 20 mg per day. 10. Acetaminophen 325 mg two every 4 hours as needed. 11. Rivastigmine patch 9.5 mg daily. 12. Amlodipine 5 mg per day. SOCIAL HISTORY: The patient resides at the [facility] and has very supportive family. REVIEW OF SYSTEMS: The patient herself is unable to participate in a formal review of systems. By review of chart, the patient has had no neck complaints, pulmonary issues, or cardiovascular issues. To my physical examination, the patient specifically denies flank pain symptoms, but does grimace during examination on the right flank. PHYSICAL EXAMINATION: VITAL SIGNS: The patient is currently afebrile with temperature of 98.1, pulse is 105, respirations 20, O2 saturations 92% on room air, and blood pressure is 142/63 and is fluctuating during the day, earlier today it was 101/58. HEAD, EARS, NOSE, AND THROAT: The patient's sclerae anicteric. Extraocular movements appeared to be grossly intact. Oropharynx is clear. Dentition is poor. NECK: Supple. LUNGS: Clear bilaterally. CARDIAC: Tachycardiac, but otherwise normal rate and rhythm. ABDOMEN: Soft, obese, and nontender with ventral hernia present, it thus reduced to the level of the abdominal wall. BACK: There is positive right-sided costovertebral angle tenderness to my examination consistent with right-sided obstructing ureteral calculus. PELVIC: Indwelling De La Cruz catheter is in place. There are menopausal atrophic changes consistent with a low estrogen status. RECTAL: Examination was not performed. EXTREMITIES: Legs are movable and did not overly contracted. Did not note any significant skin lesions on physical exam. NEUROLOGIC: The patient does not appear to be completely aware of her surroundings or the events, she is unable to find any historical details. I see that she does have some degree of motion in her upper extremities and maybe a little in her lower extremities. The patient is not able to participate in a formal neurologic examination. LABORATORY DATA: White count elevated at 14,600, hemoglobin 12.6, hematocrit 37.6, and platelet count 227,000, there is a left shift with 83% neutrophils, 1% bands. Chemistries demonstrate a blood urea nitrogen of 12 with creatine of 1.28, estimated GFR is up to 41 today. RADIOLOGIC STUDIES: CT scan of the abdomen and pelvis demonstrates presence of bilateral stones with right-sided obstructing ureteral calculus measuring up to 8 mm. There is proximal hydronephrosis and hydroureter. At time of my exam, the kidney is hydronephrotic and stranding is present. ASSESSMENT AND PLAN: 1. Urinary retention. The patient had a large amount of urine returned with De La Cruz catheter placement today. I believe this patient is an incomplete emptier based on her history of urinary tract infection and sepsis in the past and similar presentation on this admission with retained urine demonstrated that catheter placement. The patient probably would be best served by an indwelling suprapubic tube and this could be performed in a proper setting in the operating room. 2. Right-sided obstructing ureteral calculus with elevation of kidney function test and presentation suggestive of sepsis. The patient should undergo, at minimum, a cystoscopy with stenting on the right side. Risks, benefits, and complications associated with this was discussed with the patient's family and concern was obtained. We also discussed possible extension to balloon dilation of the ureter and/or uteroscopy with laser lithotripsy required on the right side. 3. Dietary concerns. The patient will be made n.p.o. We will continue IV fluid overnight. Plan is for proceeding to the operating room for ureteroscopy and stent placement on the right side, also suprapubic tube insertion. Job ID: [id number]
[2018-05-14] MEDS: Sodium Chloride 0.9% 1,000 ML IV SCH ×3 (01:28→21:47)
[2018-05-14 08:09] LABS: #Eosinphils 0.1 thou/uL (0.0-0.7); #Lymphocytes 1.2 thou/uL (1.20-3.40); #Monocytes 1.4 thou/uL (0.11-0.59); %Basophils 0.3 % (0.0-1.0); %Eosinophils 0.8 % (0.0-10.0); %Lymphocytes 11.5 % (21.0-51.0); %Monocytes 12.7 % (0.0-10.0); %Neutrophils 74.7 % (42.0-75.0); Hemoglobin 10.3 g/dL (12.0-16.0); Mean Corpuscular Hemoglobin 29.7 pg (27.0-31.0); Mean Corpuscular Volume 92.8 fL (78.0-98.0); Mean Platelet Volume 8.3 fL (7.4-10.4); Platelet Count 270 thou/uL (130-400); RBC Distribution Width 12.5 % (11.5-14.5); Red Blood Cell (RBC) Count 3.46 mill/uL (4.20-5.40); White Blood Cell (WBC) Count 10.7 thou/uL (4.8-10.8)
[2018-05-14] MEDS: Famotidine 20 MG TAB PO SCH ×2 (08:16→21:47)
[2018-05-14 08:28] LABS: Anion Gap 12 mmol/L (10-20); BUN (Urea Nitrogen) 13 mg/dL (9.8-20.1); Calc. Creatinine Clearance 58 mL/min (70-130); Calcium 9.1 mg/dL (7.8-10.44); Carbon Dioxide 21 mmol/L (23-31); Chloride 113 mmol/L (98-107); Estimated GFR-MDRD 43; Glucose 105 mg/dL (83-110); Potassium 3.3 mmol/L (3.5-5.1); Sodium 143 mmol/L (136-145)
[2018-05-14] MEDS ORDERED: Iothalamate Meglumine 60% 50 ML VIAL FS ONE (12:38)
[2018-05-14] MEDS ORDERED: Fentanyl 100 MCG/2 ML VIAL ONE (12:53)
[2018-05-14] MEDS ORDERED: Gentamicin 80 MG/2 ML VIAL ONE (13:36)
[2018-05-14] MEDS ORDERED: Bupivacaine 0.25% HCL 30 ML VIAL ONE (14:33)
[2018-05-14] MEDS ORDERED: Lidocaine 1% PF 5 ML VIAL ONE (15:00)
[2018-05-14] MEDS ORDERED: PROPOFOL 200 MG/20 ML VIAL ONE (15:00)
[2018-05-14] MEDS ORDERED: Glycopyrrolate 0.2 MG/ML 5 ML SYRINGE ONE (15:00)
[2018-05-14] MEDS ORDERED: Ondansetron PF 4 MG/2 ML Vial ONE (15:00)
[2018-05-14] MEDS ORDERED: Succinylcholine Chloride 20 MG/ML 10 ml SYRINGE FS ONE (15:00)
[2018-05-14] MEDS ORDERED: Furosemide 20 MG/2 ML VIAL ONE (15:05)
--- NOTE | 2018-05-14 15:12 | RAD ---
RETROGRADE PYELOGRAM: Date: 05/14/18 HISTORY: Stone removal, stent placement. FINDINGS/IMPRESSION: Single fluoroscopic image of the abdomen and pelvis demonstrates a right ureteral stent. No suspiciou s calcifications are seen. POS: FLACA
--- NOTE | 2018-05-14 16:43 | PRG ---
DATE OF SERVICE: 05/14/2018 INITIAL REASON FOR CONSULTATION: 1. Acute kidney injury. 2. Urinary retention with history of multiple sclerosis and postmenopausal status. 3. Altered mental status with apparent sepsis. 4. Urinary tract infection. 5. Right-sided 8 mm obstructing ureteral calculus. BRIEF HISTORY: Ms. Ling Toledo is a 72-year-old white female with a longstanding history of multiple sclerosis as well as dementia. The patient was admitted on this admission due to apparent sepsis complications and a finding of an 8 mm obstructing right ureteral calculus. The patient originally resides in the [facility] and has done well there. The patient does require assistance for all of her daily activities of living. The patient is nonambulatory, but can be moved by wheelchair. She had urosepsis from Escherichia coli in October of 2017. Has not yet established with urologist. The patient on this admission was noted to have marked reduction in her estimated glomerular filtration rate and had been with elevated white blood cell count as well as dirty urine and urinary retention. Her urine demonstrates presence of nitrites and white blood cells counts. INTERVAL EVENTS: Overnight, the patient has done reasonably well. She has a white count that in the normal range at 10.7 thousand, hemoglobin is 10.3 with hematocrit of 32.1. Her left shift is moderately improved and now down to 74.7% neutrophils. Serum chemistries showed moderation of the patient's blood urea nitrogen of 13 with creatinine of 1.22. The patient is currently afebrile for 24-hours with temperature of 98.1. PHYSICAL EXAMINATION: VITAL SIGNS: Temperature is 98.1, pulse 87, respirations 16, O2 saturation on room air is 95% with current blood pressure of 136/71. HEAD, EYES, EARS, NOSE, AND THROAT: Extraocular movements are intact. Sclerae anicteric. Oropharynx is clear. NECK: Supple. LUNGS: Clear to auscultation bilaterally. CARDIAC: Regular rate and rhythm without murmur, rub, or gallop. ABDOMEN: Soft, obese, and nontender. BACK: Today, the patient is not reporting right-sided costovertebral angle tenderness suggesting that the stone has moved to a location, where it may not be obstructing. Alternatively, the patient may have hard time reporting her pain. PELVIC: The patient has an indwelling De La Cruz catheter, which has drained straw colored urine with some particulate present. EXTREMITIES: No chronic issues and the patient is evaluated supine in bed. She is not ambulatory. LABORATORY DATA: Laboratory studies are as reported above with respective changes. ASSESSMENT: Right-sided obstructing ureteral calculus possibly moved to a nonobstructing location at this point. Based on clinical examination this cannot be, although self reporting of pain in this patient seem to be minimal and due to her inability to report pain, likely proceeding at least with cystoscopy and stenting as indicated. An initial evaluation and treatment with the laser lithotripsy may have also be relevant in this patient's case. Due to the patient's chronic urinary retention and indwelling De La Cruz catheter need, I believe a suprapubic tube is also indicated. Discussed this with the family and patient, so we do have the consent for the patient to undergo both procedures today. PLAN: Plan will be to start with ureteroscopy and end with suprapubic tube. The patient would ordinarily be suitable for discharge home as this would ordinarily be an ambulatory surgery type of operation. However, the patient may have social issues and placement issues, which are beyond the immediate scope of her acute needs. The patient appears to be recovering well from apparent urosepsis on her current medical therapy with levofloxacin. TIME SPENT: Over 35 minutes of consultation as well communication and discussion with the patient's family was made today exclusive of any procedures performed. Job ID: [id number]
--- NOTE | 2018-05-14 20:09 | OP ---
DATE OF PROCEDURE: 05/14/2018 PREPROCEDURE DIAGNOSES: 1. Right-sided obstructing ureteral calculus, N20.1. 2. Right-sided ureteral impaction stricture. 3. Pyelitis. 4. Sepsis with resolution on antibiotic coverage. 5. Urinary tract infection. POSTPROCEDURE DIAGNOSES: 1. Right-sided obstructing ureteral calculus, N20.1. 2. Right-sided ureteral impaction stricture. 3. Pyelitis. 4. Sepsis with resolution on antibiotic coverage. 5. Urinary tract infection. PROCEDURES PERFORMED: 1. Right-sided ureteroscopy with laser lithotripsy, 69929. 2. Balloon dilation of right ureteral stricture, 16970. 3. Right ureteral stent, 46484. 4. Cystotomy with suprapubic tube placement, 41313. SPECIMENS REMOVED: 1. Right renal pelvis, urine for culture. 2. Right ureteral calculus. DRAINS AND TUBES: A 14-Cuban Rutner catheter to De La Cruz bag drainage, secured with 4 mL balloon and suture at the cystotomy site. ESTIMATED BLOOD LOSS: Less than 10 mL. INDICATIONS FOR PROCEDURE: Ms. Ling Toledo is a 72-year-old white female with multiple sclerosis and dementia. She is brought in from the [facility] with mental status changes and what appears to be early sepsis on 05/13/2018. She underwent CT scanning, which demonstrated a right-sided obstructing ureteral calculus and some degree of inflammatory change around her right kidney. She had hydronephrosis and hydroureter above the calculus suggesting obstruction. The patient has a relatively poor pain sensation and did have minimal right-sided flank discomfort at admission. Due to the patient's presentation, she was covered with appropriate antibiotics for 24 hours. She had minimal change in her white blood cell count and left shift. She was not febrile and was brought to the operating room for her procedure today. DESCRIPTION OF PROCEDURE: The patient was appropriately identified and informed written consent was verified. The patient was transported to the operative suite, placed in a supine position on the cysto-fluorographic table. General anesthesia was established. Endotracheal airway was placed for that. The patient was then repositioned in the supine lithotomy position and prepped and draped in usual sterile fashion. An indwelling De La Cruz catheter was removed. The patient underwent cystoscopic evaluation. We found no efflux from patient's right ureteral orifice while there was minimal efflux from the left. The patient's bladder had some changes associated with chronic catheterization. There were some trabeculation and probable decreased bladder volume. The patient's right ureteral orifice was accessed using a 0.035 angled Glidewire and a 5-Cuban Pollack catheter. We advanced this up to the level of a radiodense calculus. The calculus was bypassed with the Glidewire. This was advanced into the level of the patient's renal pelvis. We subsequently placed a second glidewire in an identical fashion. We bypassed the calculus with a 5-Cuban Pollack catheter and aspirated all the fluid above this, some of which was purulent. This was sent for culture. The patient's collecting system was then instilled with 10 mL of sterile saline containing gentamicin 80 mg. The patient's calculus in mid ureter was then addressed, performed stepwise balloon dilation using a 6 cm x 15-Cuban dilation balloon of the distal ureter. This was advanced up to the level of the impaction stricture and the impaction stricture dilated. Following a balloon dilation, we performed a semi-rigid ureteroscopy. Advancing this to the level of the calculus, which was divided into small pieces and then subsequently was removed using ureteroscopy with basket removal using a Zero Tip Nitinol basket. After removal of the calculus, we placed a 4.5-Cuban x 28 cm double-J ureteral stent in the patient's right collecting system. Prior to this, we placed an additional 80 mg of gentamicin in 10 mL of sterile saline into the collecting system above the area of previous impaction. I placed a 4.5-Cuban x 28 cm double-J ureteral stent into the patient's right collecting system. We then filled the bladder completely to fullness. We then proceeded with our suprapubic tube insertion procedure. A cystotomy was made, making a transverse incision in the lower abdomen. We placed a 3-1/2 inch 22-gauge finder needle through the cystotomy incision. We performed cystoscopic evaluation of the patient's bladder and identified the entry point for the needle. We then carried the incision down to the bladder making a cystotomy with an 11 blade knife. The patient then received a 14-Cuban Rutner catheter over the wire into the bladder, inflated the balloon to 4 mL. We secured the catheter to the patient's anterior abdominal wall using 2-0 silk suture, which was also utilized to close the cystotomy and lower abdominal incision. This was placed to bag drainage. The patient was subsequently awakened and extubated in the operative suite, transported subsequently to the postoperative recovery area in good condition. COMPLICATIONS: None. ESTIMATED BLOOD LOSS: Less than 10 mL. Job ID: [id number]
[2018-05-15] MEDS: Acetaminophen 325 MG TAB PO PRN ×2 (00:02→14:40)
[2018-05-15] MEDS ORDERED: Meropenem 1 GM in Sodium Chloride 0.9% 100 ML IVPB SCH (02:13)
[2018-05-15 02:40] LABS: #Monocytes 0.9 thou/uL (0.11-0.59); #Neutrophils 10.5 thou/uL (1.40-6.50); %Basophils 0.1 % (0.0-1.0); %Eosinophils 0.3 % (0.0-10.0); %Lymphocytes 8.4 % (21.0-51.0); %Monocytes 7.1 % (0.0-10.0); %Neutrophils 84.3 % (42.0-75.0); Hemoglobin 11.6 g/dL (12.0-16.0); Mean Corpuscular HGB CONC 33.3 g/dL (32.0-36.0); Mean Corpuscular Hemoglobin 29.8 pg (27.0-31.0); Mean Corpuscular Volume 89.5 fL (78.0-98.0); Mean Platelet Volume 7.6 fL (7.4-10.4); Platelet Count 329 thou/uL (130-400); RBC Distribution Width 12.6 % (11.5-14.5); Red Blood Cell (RBC) Count 3.91 mill/uL (4.20-5.40); White Blood Cell (WBC) Count 12.5 thou/uL (4.8-10.8)
[2018-05-15] MEDS: MEROPENEM 1 GM/50 ML 1 GM in Premix Bag 1 BAG IVPB SCH ×2 (02:41→14:40)
[2018-05-15 02:53] LABS: Anion Gap 15 mmol/L (10-20); BUN (Urea Nitrogen) 12 mg/dL (9.8-20.1); Calc. Creatinine Clearance 56 mL/min (70-130); Carbon Dioxide 21 mmol/L (23-31); Chloride 113 mmol/L (98-107); Estimated GFR-MDRD 41; Glucose 130 mg/dL (83-110); Sodium 146 mmol/L (136-145)
[2018-05-15] MEDS ORDERED: Acetaminophen 325 MG TAB PO SCH (03:00)
[2018-05-15] MEDS: Sodium Chloride 0.9% 1,000 ML IV SCH ×2 (05:50→16:55)
[2018-05-15] MEDS ORDERED: Potassium Chloride 20 MEQ TAB PO SCH (07:30)
[2018-05-15] MEDS: Famotidine 20 MG TAB PO SCH ×2 (08:34→21:16)
--- NOTE | 2018-05-15 09:58 | PDOC.PN ---
- Subjective Encounter Start Date: 05/15/18 Encounter Start Time: 09:57 Patient states she is doing "great". She denies any pain. Denies any difficulty breathing. - Objective Vital Signs & Weight: Vital Signs (12 hours) Temp Pulse Resp BP BP Pulse Ox 05/15/18 07:08 98.2 F 101 H 19 147/81 H 93 L 05/15/18 04:00 98.1 F 100 20 127/77 91 L 05/15/18 02:05 102.5 F H 116 H 20 127/66 93 L 05/15/18 00:00 101.4 F H 125 H 20 138/87 92 L Weight Weight 195 lb I&O: 05/14/18 05/15/18 05/16/18 06:59 06:59 06:59 Intake Total 1440 3475 240 Output Total 1725 5750 Balance -285 -2278 240 Result Diagrams: 05/15/18 02:26 05/15/18 02:26 Phys Exam - Physical Examination Constitutional: NAD awake and alert. Answers questions appropriately. Respiratory: no wheezing, no rales, no rhonchi, clear to auscultation bilateral Borderline tachypneic. Cardiovascular: RRR, no significant murmur Gastrointestinal: soft, non-tender, no distention, positive bowel sounds Musculoskeletal: no edema Skin: normal turgor Dx/Plan (1) Acute kidney injury Code(s): N17.9 - ACUTE KIDNEY FAILURE, UNSPECIFIED Status: Acute (2) Ureterolithiasis Code(s): N20.1 - CALCULUS OF URETER Status: Acute (3) Ureteral stenosis Code(s): Q62.10 - CONGENITAL OCCLUSION OF URETER, UNSPECIFIED Status: Acute (4) Urinary retention Code(s): R33.9 - RETENTION OF URINE, UNSPECIFIED Status: Acute (5) UTI (urinary tract infection) Status: Acute (6) Multiple sclerosis Code(s): G35 - MULTIPLE SCLEROSIS Status: Acute (7) Dementia Code(s): F03.90 - UNSPECIFIED DEMENTIA WITHOUT BEHAVIORAL DISTURBANCE Status: Acute (8) Dyslipidemia Code(s): E78.5 - HYPERLIPIDEMIA, UNSPECIFIED Status: Chronic - Plan * Status post ureteral lazerl lithotripsy, ureteral stent and suprapubic catheter. Has some expected hematuria. * Proximal ureteral aspirate culture with GP and GNR. Continue abx and await final results. * Discussed with CM. She will check with facility to ensure patient can return there. * Can likely discharge when the culture results are known. * Resume BP meds.
[2018-05-15] MEDS ORDERED: Aspirin 81 mg Enteric Coated Tablet PO SCH (10:30)
[2018-05-15] MEDS ORDERED: Amlodipine 5 MG TAB PO SCH (10:30)
[2018-05-15] MEDS ORDERED: DULoxetine 60 MG CAP PO SCH (10:30)
[2018-05-15] MEDS ORDERED: Atorvastatin Calcium 20 MG TAB PO SCH (10:30)
--- NOTE | 2018-05-15 15:23 | PRG ---
DATE OF SERVICE: 05/15/2018 SUBJECTIVE: "I feel fine, fine as wine." OBJECTIVE: VITAL SIGNS: Temperature 99.8, blood pressure 161/80, pulse 77, and respiratory rate 17. CHEST: Clear to auscultation. ABDOMEN: Soft and nontender. LABORATORY STUDIES: Urine culture pending. IMPRESSION: Ms. Toledo is a 72-year-old female status post ureteroscopy, stent placement, and suprapubic tube placement. I also believe, based on the operative report, that she received laser lithotripsy of a stone and the ureteral stone is removed. She seems to be responding well to antibiotic therapy. RECOMMENDATIONS: The patient is to follow up in our office for suprapubic tube change and stent removal in approximately [address] Timur Larsen. Job ID: [id number] MTDD
[2018-05-16] MEDS: MEROPENEM 1 GM/50 ML 1 GM in Premix Bag 1 BAG IVPB SCH ×2 (03:16→15:52)
[2018-05-16] MEDS: Acetaminophen 325 MG TAB PO PRN ×2 (03:16→08:16)
[2018-05-16] MEDS: Sodium Chloride 0.9% 1,000 ML IV SCH (04:00)
[2018-05-16 07:14] LABS: #Eosinphils 0.2 thou/uL (0.0-0.7); #Lymphocytes 1.5 thou/uL (1.20-3.40); #Monocytes 1.1 thou/uL (0.11-0.59); #Neutrophils 9.7 thou/uL (1.40-6.50); %Basophils 0.2 % (0.0-1.0); %Eosinophils 1.6 % (0.0-10.0); %Lymphocytes 11.9 % (21.0-51.0); %Monocytes 8.6 % (0.0-10.0); %Neutrophils 77.7 % (42.0-75.0); Hemoglobin 11.6 g/dL (12.0-16.0); Mean Corpuscular HGB CONC 33.6 g/dL (32.0-36.0); Mean Corpuscular Hemoglobin 30.1 pg (27.0-31.0); Mean Corpuscular Volume 89.8 fL (78.0-98.0); Mean Platelet Volume 7.8 fL (7.4-10.4); Platelet Count 436 thou/uL (130-400); RBC Distribution Width 12.6 % (11.5-14.5); Red Blood Cell (RBC) Count 3.85 mill/uL (4.20-5.40); White Blood Cell (WBC) Count 12.4 thou/uL (4.8-10.8)
[2018-05-16 07:38] LABS: Anion Gap 17 mmol/L (10-20); BUN (Urea Nitrogen) 15 mg/dL (9.8-20.1); Calc. Creatinine Clearance 63 mL/min (70-130); Calcium 9.2 mg/dL (7.8-10.44); Carbon Dioxide 22 mmol/L (23-31); Chloride 114 mmol/L (98-107); Estimated GFR-MDRD 47; Glucose 127 mg/dL (83-110); Sodium 150 mmol/L (136-145)
[2018-05-16 07:43] LABS: Potassium 2.8 mmol/L (3.5-5.1)
[2018-05-16] MEDS ORDERED: Potassium Chloride 20 MEQ TAB PO SCH (08:00)
[2018-05-16] MEDS ORDERED: Dextrose 5 %-0.45 % NaCl 1,000 ML IV SCH (08:00)
[2018-05-16] MEDS: DULoxetine 60 MG CAP PO SCH (08:17)
[2018-05-16] MEDS: Atorvastatin Calcium 20 MG TAB PO SCH (08:17)
[2018-05-16] MEDS: Amlodipine 5 MG TAB PO SCH (08:18)
[2018-05-16] MEDS: Famotidine 20 MG TAB PO SCH ×2 (08:18→20:19)
[2018-05-16] MEDS: Aspirin 81 mg Enteric Coated Tablet PO SCH (08:18)
[2018-05-16] MEDS: Polyethylene Glycol 3350 17 GM Packet PO SCH (08:22)
[2018-05-16] MEDS: Rivastigmine 9.5mg/24 Hour PATCH TOP SCH (08:22)
[2018-05-16] MEDS: D5 1/2 NS w/40 mEq KCL 1,000 ML IV SCH (09:57)
--- NOTE | 2018-05-16 11:48 | PDOC.PN ---
- Subjective Encounter Start Date: 05/16/18 Encounter Start Time: 10:20 Doing well. Brother and [id number] present. Indicate she has complained of her eyes burning. That has been a problem for her in the past and got better with natural tears. - Objective Vital Signs & Weight: Vital Signs (12 hours) Temp Pulse Resp BP BP Pulse Ox 05/16/18 11:02 99.4 F 99 18 156/81 H 93 L 05/16/18 08:18 99 155/86 H 05/16/18 07:10 100.1 F H 99 20 155/86 H 93 L 05/16/18 04:00 98.1 F 107 H 20 113/79 93 L Weight Weight 195 lb I&O: 05/15/18 05/16/18 05/17/18 06:59 06:59 06:59 Intake Total 3475 1780 Output Total 5750 3200 Balance -3220 -7494 Result Diagrams: 05/16/18 06:25 05/16/18 06:25 Phys Exam - Physical Examination Constitutional: NAD Respiratory: no wheezing, no rales, no rhonchi, clear to auscultation bilateral Cardiovascular: RRR, no significant murmur Gastrointestinal: soft, non-tender, no distention, positive bowel sounds Musculoskeletal: no edema Awake and alert. Answers questions appropriately. Skin: normal turgor Dx/Plan (1) Acute kidney injury Code(s): N17.9 - ACUTE KIDNEY FAILURE, UNSPECIFIED Status: Resolved (2) Ureterolithiasis Code(s): N20.1 - CALCULUS OF URETER Status: Acute Comment: Status post lazer lithotripsy with stent. 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 (4) Urinary retention Code(s): R33.9 - RETENTION OF URINE, UNSPECIFIED Status: Acute Comment: Status post suprapubic catheter placement. (5) UTI (urinary tract infection) Status: Acute Comment: Sample obtain proxima to obstruction for culture. GNR. Final pending. (6) Multiple sclerosis Code(s): G35 - MULTIPLE SCLEROSIS Status: Acute (7) Dementia Code(s): F03.90 - UNSPECIFIED DEMENTIA WITHOUT BEHAVIORAL DISTURBANCE Status: Acute (8) Dyslipidemia Code(s): E78.5 - HYPERLIPIDEMIA, UNSPECIFIED Status: Chronic - Plan * Continue Merem until final is back on the urine culture. Can discharge per Urology to have outpatient follow up.
[2018-05-16] MEDS: Artificial Tears 18 DROP/0.9 ML EA EYE PRN (12:45)
[2018-05-17] MEDS: MEROPENEM 1 GM/50 ML 1 GM in Premix Bag 1 BAG IVPB SCH (03:54)
[2018-05-17] MEDS: D5 1/2 NS w/40 mEq KCL 1,000 ML IV SCH (03:55)
[2018-05-17 06:37] LABS: Hemoglobin 10.7 g/dL (12.0-16.0); Mean Corpuscular HGB CONC 32.6 g/dL (32.0-36.0); Mean Corpuscular Hemoglobin 29.5 pg (27.0-31.0); Mean Corpuscular Volume 90.6 fL (78.0-98.0); Mean Platelet Volume 8.8 fL (7.4-10.4); Platelet Count 284 thou/uL (130-400); RBC Distribution Width 12.7 % (11.5-14.5); Red Blood Cell (RBC) Count 3.63 mill/uL (4.20-5.40); White Blood Cell (WBC) Count 11.7 thou/uL (4.8-10.8)
[2018-05-17 06:52] LABS: Anion Gap 13 mmol/L (10-20); BUN (Urea Nitrogen) 15 mg/dL (9.8-20.1); Calc. Creatinine Clearance 77 mL/min (70-130); Calcium 8.6 mg/dL (7.8-10.44); Carbon Dioxide 22 mmol/L (23-31); Chloride 112 mmol/L (98-107); Estimated GFR-MDRD 60; Glucose 112 mg/dL (83-110); Potassium 3.6 mmol/L (3.5-5.1); Sodium 143 mmol/L (136-145)
[2018-05-17 07:46] LABS: Band 4 % (5-11); Eosinophils 2 % (0-10); Lymphocytes 22 % (21-51); MDiff Complete? YES; Monocytes 6 % (0-10); Myelocyte 1 % (0-0); Neutrophil 65 % (42-75); PLT Morphology Comment Appears Adequate; Polychromasia SLIGHT = 2-3 cells (100X) (0-2/hpf)
[2018-05-17] MEDS: DULoxetine 60 MG CAP PO SCH (08:19)
[2018-05-17] MEDS: Aspirin 81 mg Enteric Coated Tablet PO SCH (08:20)
[2018-05-17] MEDS: Amlodipine 5 MG TAB PO SCH (08:20)
[2018-05-17] MEDS: Polyethylene Glycol 3350 17 GM Packet PO SCH (08:21)
[2018-05-17] MEDS: Famotidine 20 MG TAB PO SCH ×2 (08:21→19:58)
[2018-05-17] MEDS: Rivastigmine 9.5mg/24 Hour PATCH TOP SCH (08:22)
[2018-05-17] MEDS: Atorvastatin Calcium 20 MG TAB PO SCH (08:22)
[2018-05-17] MEDS: Artificial Tears 18 DROP/0.9 ML EA EYE PRN (08:23)
[2018-05-17] MEDS: cefTRIAXone\\ROCEPHIN 1 GM in Sodium Chloride 0.9% 100 ML IVPB SCH (11:04)
--- NOTE | 2018-05-17 14:13 | PQF ---
CLINICAL DOCUMENTATION IMPROVEMENT CLARIFICATION FORM: ICD-10 Updated PLEASE DO AN ADDENDUM TO THE PROGRESS NOTE WITH ANY DOCUMENTATION UPDATES OR ADDITIONS AND CARRY THROUGH TO DC SUMMARY. THANK YOU. DATE: 05/17/18 ATTN: Dr. Becerril Please exercise your independent, professional judgment in responding to the clarification form. Clinical indicators are provided on the bottom of this form for your review Please check appropriate box(s) to clarify if the following diagnosis has been ruled in or ruled out: Sepsis [ ] Ruled in diagnosis [ ] Continue to treat [x ] Resolved [ ] Ruled out diagnosis [ ] Cannot rule out diagnosis [ ] Other diagnosis [ ] Unable to determine In addition, please specify: Present on Admission (POA): [ x ] Yes [ ] No [ ] Unable to determine For continuity of documentation, please document condition throughout progress notes and discharge summary. Thank You. CLINICAL INDICATORS - SIGNS / SYMPTOMS / LABS H&P 05/13: UTI with sepsis. UROLOGY CONSULT 05/13: White count 14,600 Right-sided obstructing ureteral calculus with elevation of kidney function test and presentation suggestive of sepsis. RISKS: H&P: UTI with sepsis. Nephrolithiasis. Dementia/ altered mental status. TREATMENT: 05/15-05/17: IV Meropenem 1 gm 05/17: IV Rocephin Thank you, Bhakti (This form is maintained as a part of the permanent medical record) 2014 [employer] All Rights Reserved Bhakti Chan RN, BSN [email or web address] Office: [phone] [facility]
--- NOTE | 2018-05-17 14:26 | PDOC.PN ---
- Subjective Encounter Start Date: 05/17/18 Encounter Start Time: 11:45 Subjective: pt up in bed no complains - Objective Vital Signs & Weight: Vital Signs (12 hours) Temp Pulse Resp BP BP Pulse Ox 05/17/18 08:20 86 130/84 05/17/18 08:00 96 05/17/18 07:50 99.1 F 86 20 130/84 96 Weight Weight 195 lb I&O: 05/16/18 05/17/18 05/18/18 06:59 06:59 06:59 Intake Total 1780 1500 Output Total 3200 900 Balance -1420 600 Result Diagrams: 05/17/18 06:17 05/17/18 06:17 Phys Exam - Physical Examination Neck: no nodes, no JVD, supple, full ROM Respiratory: no wheezing, no rales, no rhonchi, wheezing present, clear to auscultation bilateral Cardiovascular: RRR, no significant murmur, no rub, gallop, irregular Gastrointestinal: soft, non-tender, no distention, positive bowel sounds Dx/Plan (1) Sepsis due to Escherichia coli Code(s): A41.51 - SEPSIS DUE TO ESCHERICHIA COLI [E. COLI] Status: Acute (2) UTI (urinary tract infection) Status: Acute Comment: Sample obtain proxima to obstruction for culture. GNR. Final pending. (3) Obesity (BMI 30-39.9) Code(s): E66.9 - OBESITY, UNSPECIFIED Status: Chronic (4) Dementia Code(s): F03.90 - UNSPECIFIED DEMENTIA WITHOUT BEHAVIORAL DISTURBANCE Status: Acute - Plan will change abx to ceftriaxone from mylene -: possible discharge to snf in am -: pt to follow with urology for suprapubic cath replacement and stent removal * . Review of Systems - Review of Systems Respiratory: negative: Cough, Dry, Shortness of Breath, Hemoptysis, SOB with Excertion, Pleuritic Pain, Sputum, Wheezing Cardiovascular: negative: chest pain, palpitations, orthopnea, paroxysmal nocturnal dyspnea, edema, light headedness, other Gastrointestinal: negative: Nausea, Vomiting, Abdominal Pain, Diarrhea, Constipation, Melena, Hematochezia, Other Genitourinary: negative: Dysuria, Frequency, Incontinence, Hematuria, Retention , Other - Medications/Allergies Allergies/Adverse Reactions: Allergies Allergy/AdvReac Type Severity Reaction Status Date / Time Iodinated Contrast- Oral and Allergy Verified 05/10/18 22:41 IV Dye No Known Drug Allergies Allergy Verified 11/19/17 01:53 Medications: Current Medications Acetaminophen (Tylenol) 650 mg PO Q4H PRN PRN Reason: Headache/Fever/Mild Pain (1-3) Last Admin: 05/16/18 08:16 Dose: 650 mg Amlodipine Besylate (Norvasc) 5 mg PO DAILY [facility] Last Admin: 05/17/18 08:20 Dose: 5 mg Artificial Tears (Tears Naturale) 2 drop EA EYE Q4H PRN PRN Reason: Dry Eyes Last Admin: 05/17/18 08:23 Dose: 2 drop Aspirin (Ecotrin) 81 mg PO DAILY [facility] Last Admin: 05/17/18 08:20 Dose: 81 mg Atorvastatin Calcium (Lipitor) 20 mg PO DAILY [facility] Last Admin: 05/17/18 08:22 Dose: 20 mg Duloxetine HCl (Cymbalta) 60 mg PO DAILY [facility] Last Admin: 05/17/18 08:19 Dose: 60 mg Famotidine (Pepcid) 20 mg PO BID [facility] Last Admin: 05/17/18 08:21 Dose: 20 mg Potassium Chloride/Dextrose/Sod Cl (D5 1/2 Ns W/40 Meq Kcl) 1,000 mls @ 50 mls/ hr IV .Q20H [facility] Last Admin: 05/17/18 03:55 Dose: 1,000 mls Ceftriaxone Sodium 1 gm/ (Sodium Chloride) 100 mls @ 200 mls/hr IVPB Q24HR [facility] Last Admin: 05/17/18 11:04 Dose: 100 mls Miscellaneous Medication (Pharmacy To Dose) 1 each IVPB PRN PRN PRN Reason: Pharmacy to dose Ondansetron HCl (Zofran) 4 mg IVP Q6H PRN PRN Reason: Nausea/Vomiting Polyethylene Glycol (Miralax) 17 gm PO DAILY [facility] Last Admin: 05/17/18 08:21 Dose: 17 gm Rivastigmine (Exelon Patch) 9.5 mg TOP DAILY [facility] Last Admin: 05/17/18 08:22 Dose: 9.5 mg Sodium Chloride (Flush - Normal Saline) 10 ml IVF PRN PRN PRN Reason: Saline Flush Zolpidem Tartrate (Ambien) 5 mg PO HSPRN PRN PRN Reason: Insomnia
[2018-05-18] MEDS: D5 1/2 NS w/40 mEq KCL 1,000 ML IV SCH (01:40)
[2018-05-18] MEDS: Famotidine 20 MG TAB PO SCH (09:04)
[2018-05-18] MEDS: Aspirin 81 mg Enteric Coated Tablet PO SCH (09:04)
[2018-05-18] MEDS: DULoxetine 60 MG CAP PO SCH (09:04)
[2018-05-18] MEDS: Polyethylene Glycol 3350 17 GM Packet PO SCH (09:04)
[2018-05-18] MEDS: Atorvastatin Calcium 20 MG TAB PO SCH (09:04)
[2018-05-18] MEDS: Amlodipine 5 MG TAB PO SCH (09:04)
[2018-05-18] MEDS: Rivastigmine 9.5mg/24 Hour PATCH TOP SCH (09:05)
[2018-05-18 09:06] LABS: #Eosinphils 0.5 thou/uL (0.0-0.7); #Lymphocytes 1.8 thou/uL (1.20-3.40); #Neutrophils 9.6 thou/uL (1.40-6.50); %Basophils 0.3 % (0.0-1.0); %Eosinophils 3.9 % (0.0-10.0); %Lymphocytes 13.9 % (21.0-51.0); %Monocytes 7.4 % (0.0-10.0); %Neutrophils 74.6 % (42.0-75.0); Hemoglobin 10.8 g/dL (12.0-16.0); Mean Corpuscular HGB CONC 32.9 g/dL (32.0-36.0); Mean Corpuscular Hemoglobin 29.8 pg (27.0-31.0); Mean Corpuscular Volume 90.6 fL (78.0-98.0); Mean Platelet Volume 7.4 fL (7.4-10.4); Platelet Count 455 thou/uL (130-400); RBC Distribution Width 12.6 % (11.5-14.5); Red Blood Cell (RBC) Count 3.64 mill/uL (4.20-5.40); White Blood Cell (WBC) Count 12.9 thou/uL (4.8-10.8)
[2018-05-18] MEDS: cefTRIAXone\\ROCEPHIN 1 GM in Sodium Chloride 0.9% 100 ML IVPB SCH (09:10)
[2018-05-18 09:20] LABS: Anion Gap 13 mmol/L (10-20); BUN (Urea Nitrogen) 14 mg/dL (9.8-20.1); Calc. Creatinine Clearance 86 mL/min (70-130); Carbon Dioxide 21 mmol/L (23-31); Chloride 110 mmol/L (98-107); Estimated GFR-MDRD 68; Glucose 118 mg/dL (83-110); Potassium 3.9 mmol/L (3.5-5.1); Sodium 140 mmol/L (136-145)
[2018-05-18 11:30] VITALS: BP 107/70; TEMP 98.6
--- NOTE | 2018-05-19 06:01 | DIS ---
DATE OF ADMISSION: 05/13/2018 DATE OF DISCHARGE: 05/18/2018 DISCHARGE DIAGNOSES: As of the following; 1. Sepsis due to Escherichia coli. 2. Urinary tract infection. 3. Obesity. 4. Dementia. 5. Obstructing urinary calculi. HOSPITAL COURSE: The patient is a very pleasant 72-year-old female, who initially presented to the hospital on the , who came in for altered mental status. The patient at that time was found to have an obstructive uropathy with 8 mm stone, which was causing hydronephrosis. She was started on IV antibiotics and was admitted to the hospital. She also was seen by Urology. On the , she underwent a right-sided urethroscopy with laser lithotripsy, balloon dilation of the right urethral stricture and right ureteral stent placement. She also had a cystostomy with suprapubic tube placement. The patient initially was put on broad-spectrum antibiotics. Her culture came back for E coli and Streptococcus gordonii, which were both sensitive to the ceftriaxone. The patient was started transition from meropenem to ceftriaxone. We will continue it for a total of 14 days. She is going to be discharged with ceftriaxone 2 mg IV. HOME MEDICATIONS: Will be as of the following; 1. Ceftriaxone 2 mg IV daily until I believe May 27. 2. Aspirin 81 mg daily. 3. Duloxetine 60 mg daily. 4. Atorvastatin 20 mg daily. 5. MiraLAX 17 g p.o. daily. 6. Amlodipine 5 mg daily. 7. Exelon patch 9.5 mg topical daily. DISCHARGE INSTRUCTIONS: It is noted in the note to follow up with Dr. Larsen who is Urology in the next four weeks for suprapubic tube change and removal of the stent and this has been communicated in the discharge notes. Also, she will also have CBCs and BMPs on a weekly basis while she is on antibiotics. PHYSICAL EXAMINATION: VITAL SIGNS: Temperature 98.6, pulse 83, respirations 20, O2 sat 95% on room air, blood pressure 107/70. GENERAL: She is awake, alert, and oriented x3. Does not appear in any distress. CV: S1, S2 present. No murmurs, rubs, or gallops. ABDOMEN: Soft and nontender. Bowel sounds present x2. Suprapubic catheter is intact. EXTREMITIES: No edema. Pedal pulses are present x2. DISPOSITION: She will be discharged. She will follow up with Urology as an outpatient. Job ID: [id number]
== END 2018-05-18 12:14 | DRG 854 ==
LOC: T4-A 12:56
PROVIDERS: ADMIT Family Medicine; ATTEND Family Medicine
PROC: 0T768DZ Dilation of Right Ureter with Intraluminal Device, Via Natural or Artificial Opening Endoscopic (ICD-10-PCS; principal; 2018-05-14)
PROC: 0T9B00Z Drainage of Bladder with Drainage Device, Open Approach (ICD-10-PCS; 2018-05-14)
PROC: 0TC68ZZ Extirpation of Matter from Right Ureter, Via Natural or Artificial Opening Endoscopic (ICD-10-PCS; 2018-05-14)
DX: A41.51 Sepsis due to Escherichia coli [E. coli] (principal); N39.0 Urinary tract infection, site not specified; N20.1 Calculus of ureter; N17.9 Acute kidney failure, unspecified; F03.90 Unspecified dementia, unspecified severity, without behavioral disturbance, psychotic disturbance, mood disturbance, and anxiety; I10 Essential (primary) hypertension; E78.5 Hyperlipidemia, unspecified; E66.9 Obesity, unspecified; Z68.32 Body mass index [BMI] 32.0-32.9, adult; N13.5 Crossing vessel and stricture of ureter without hydronephrosis; R33.9 Retention of urine, unspecified; G35 Multiple sclerosis
CPT/HCPCS: 36415; 74420; 80048; 81001; 82365; 84443; 85025; 87070; 87077; 87186; 87205; 88300; C1758; C1769; C2627; J0696; J1580; J1940; J1956; J2001; J2185; J2405; J2704; J3010; J7050; Q9961; S0020

== ENCOUNTER 2018-05-20 18:30 | Inpatient (IN) | payer MEDICARE, MEDICAID ==
[2018-05-20] MEDS ORDERED: EPINEPHrine 1 MG/10 ML Abboject SYRINGE ONE ×2 (18:38→20:00)
[2018-05-20 18:59] LABS: Hemoglobin 12.3 g/dL (12.0-16.0); Mean Corpuscular HGB CONC 31.4 g/dL (32.0-36.0); Mean Corpuscular Hemoglobin 29.5 pg (27.0-31.0); Mean Corpuscular Volume 93.9 fL (78.0-98.0); Mean Platelet Volume 8.2 fL (7.4-10.4); Platelet Count 652 thou/uL (130-400); RBC Distribution Width 13.6 % (11.5-14.5); Red Blood Cell (RBC) Count 4.18 mill/uL (4.20-5.40); White Blood Cell (WBC) Count 40.9 thou/uL (4.8-10.8)
[2018-05-20 19:08] LABS: Actual Bicarbonate (HCO3a) 10.6 mEq/L (22-28); Analyzer IN Cardio ER; Base Excess (BEa) -19.8 mEq/L (-2.0 to +3.0); CO2 Tension 42.8 mmHg (35.0-45.0); Calcium, Ionized 1.28 mmol/L (1.12-1.30); Carboxyhemoglobin (COHb) 0.3 gm% (0.0-3.0); Hemoglobin (Hb) 11.6 g/dL (12.0-16.0); O2 Tension (PaO2) 221.8 mmHg (> 70.0)
[2018-05-20 19:10] LABS: ALT (SGPT) 16 U/L (8-55); AST (SGOT) 25 U/L (5-34); Albumin 3.4 g/dL (3.4-4.8); Alkaline Phosphatase 141 U/L (40-150); Anion Gap 25 mmol/L (10-20); BUN (Urea Nitrogen) 21 mg/dL (9.8-20.1); Bilirubin, Total 0.3 mg/dL (0.2-1.2); Calc. Creatinine Clearance 0 mL/min (70-130); Calcium 9.3 mg/dL (7.8-10.44); Carbon Dioxide 12 mmol/L (23-31); Chloride 108 mmol/L (98-107); Estimated GFR-MDRD 33; Globulin 4.9 g/dL (2.4-3.5); Glucose 350 mg/dL (83-110); Lipase 130 U/L (8-78); Potassium 4.5 mmol/L (3.5-5.1); Protein, Total 8.3 g/dL (6.0-8.3); Sodium 140 mmol/L (136-145)
[2018-05-20] MEDS ORDERED: Norepinephrine 8 MG/0.9% NS 250 ML ONE (19:13)
[2018-05-20 19:14] LABS: Band 13 % (5-11); Lymphocytes 4 % (21-51); MDiff Complete? YES; Metamyelocyte 1 % (0-0); Monocytes 2 % (0-10); Myelocyte 1 % (0-0); Neutrophil 79 % (42-75); PLT Morphology Comment Appears Increased; RBC Morphology Normal
[2018-05-20] MEDS ORDERED: fentaNYL Citrate/PF 2,000 MCG in Sodium Chloride 0.9% 60 ML IV SCH ×2 (19:15→21:58)
[2018-05-20 19:20] LABS: Puncture Site LRA; pH, Arterial 7.01 (7.35-7.45)
[2018-05-20 19:22] LABS: Bicarbonate (HCO3v) 10.5 mmol/L (22.0-29.0); CO2 Tension (PvCO2) 37.6 mmHg (41.0-51.0); Calcium, Ionized 1.25 mmol/L (1.12-1.32); Hemoglobin - Calc 11.6 g/dL (12.0-18.0); Lactate 15.18 mmol/L (0.50-2.20); O2 Tension (PvO2) 99.5 mmHg (35.0-45.0); Potassium 3.5 mmol/L (3.4-4.7); T. Carbon Dioxide 11.7 mmol/L (1.0-85.0); pH (Venous) 7.055 (7.35-7.45)
[2018-05-20] MEDS ORDERED: methylPREDNISolone Sod Succ/PF 125 MG/2 ML VIAL ONE (19:32)
[2018-05-20 19:49] LABS: INR-International Normal Ratio 1.4; PTT 22.9 SEC (22.9-36.1); Prothrombin Time 16.8 SEC (12.0-14.7)
[2018-05-20] MEDS ORDERED: Calcium Chloride 1 GM/10 ML Abboject SYRINGE ONE (20:00)
[2018-05-20] MEDS ORDERED: Sodium Bicarb 50 MEQ/50 ML VIAL ONE (20:00)
[2018-05-20] MEDS ORDERED: MEROPENEM 1 GM/50 ML 1 GM in Premix Bag 1 BAG IVPB SCH (20:30)
[2018-05-20 20:40] LABS: Actual Bicarbonate (HCO3a) 15.3 mEq/L (22-28); Analyzer IN Cardio ER; Base Excess (BEa) -9.1 mEq/L (-2.0 to +3.0); CO2 Tension 29.3 mmHg (35.0-45.0); Calcium, Ionized 1.18 mmol/L (1.12-1.30); Carboxyhemoglobin (COHb) 0.3 gm% (0.0-3.0); Hemoglobin (Hb) 13.1 g/dL (12.0-16.0); O2 Tension (PaO2) 70.4 mmHg (> 70.0); Potassium - ABG Lab 3.11 mmol/L (3.70-5.30); pH, Arterial 7.34 (7.35-7.45)
[2018-05-20 20:43] LABS: ALV-art Gradient 463.375 (0-20); Puncture Site LRA
[2018-05-20 20:47] LABS: Bilirubin Negative (Negative); Blood, Urine Large (Negative); Clarity TURBID (Clear); Glucose, Urine (Dipstick) 100 mg/dL (Negative); Leukocyte Moderate (Negative); Nitrite Negative (Negative); Protein, Urine (Dipstick) 100 mg/dL (Neg-Trace); Specific Gravity, Urine 1.017 (1.002-1.036); Urobilinogen 0.2 mg/dL (0.2-1.0); pH, Urine 6.5 (5.0-9.0)
[2018-05-20 20:50] LABS: Pathc Cast-AUWi Flag 6.39 (0-2.49); Yeast-AUWi Flag 58.2 (0-25.0)
[2018-05-20 20:59] LABS: RBC/HPF GREATER THAN 50-TNTC HPF (0-3)
[2018-05-20 21:00] LABS: Bacteria/HPF Rare-Few HPF (None Seen); Squamous Epithelial 0-3 HPF (0-3)
[2018-05-20 21:01] LABS: Hyaline Casts/LPF 4-6 HYALINE CAST LPF (0-3 Hyaline); Renal Epithelial 0-3 HPF (0-3); Transitional Epithelial 0-3 HPF (0-3)
--- NOTE | 2018-05-20 21:24 | RAD ---
ONE VIEW CHEST: 05/20/18 COMPARISON: 05/10/18 HISTORY: Hematemesis. FINDINGS: Endotracheal tube is just proximal to the sly and repositioning is recommended. Nasogastric tube a ppears to extend beyond the diaphragm. Distal tip is not seen. Right sided subclavian central venous catheter appears to terminate over the expected region of the cavoatrial junction. No pneumothorax. D iminished lung volumes which are presumed to be due a poor inspiratory effort. Patchy interstitial op acities may be accentuation secondary to diminished lung volumes. Possibility of an infiltrate cannot be excluded. Possible lucency underneath the left hemidiaphram. No osseous abnormality. IMPRESSION: 1. Endotracheal tube as above. Repositioning is recommended. Consider pulling back the endotrach eal tube approximately 3 cm. 2. Interstitial opacities as above. Findings may be due to diminished lung volumes. Infiltration /aspiration cannot be excluded. POS: [facility]
[2018-05-20] MEDS ORDERED: Ondansetron ODT 4 MG TAB PO PRN (21:43)
[2018-05-20] MEDS ORDERED: Acetaminophen 325 MG Suppository PR PRN (21:43)
[2018-05-20] MEDS ORDERED: Acetaminophen 650 MG Suppository PR PRN (21:43)
[2018-05-20] MEDS ORDERED: CCU Electrolyte Replacement 1 EACH IVPB SCH (21:43)
[2018-05-20] MEDS ORDERED: Norepinephrine 8 MG/0.9% NS 250 ML IVPB PRN (21:43)
[2018-05-20] MEDS ORDERED: Ondansetron PF 4 MG/2 ML Vial IVP PRN (21:43)
[2018-05-20] MEDS ORDERED: Acetaminophen 325 MG/10.15 ML UDCUP PO PRN (21:43)
[2018-05-20] MEDS ORDERED: Acetaminophen 325 MG TAB PO PRN (21:43)
[2018-05-20] MEDS ORDERED: Ventilator Sedation Protocol 1 EACH FS SCH (21:45)
[2018-05-20] MEDS ORDERED: Propofol BOLUS 1,000 MG/100 ML VIAL IV PRN (21:58)
[2018-05-20] MEDS ORDERED: Fentanyl BOLUS 250 ML IVPB PRN (21:58)
[2018-05-20] MEDS ORDERED: Lorazepam 2 MG/ML VIAL SLOW IVP PRN (21:58)
[2018-05-20] MEDS ORDERED: Propofol 1,000 MG/100 ML VIAL IV PRN (21:58)
[2018-05-20] MEDS ORDERED: Morphine 2 MG/ML SYRINGE SLOW IVP PRN (21:58)
[2018-05-20] MEDS ORDERED: DISCONTINUE PREVIOUS NARCOTIC PAIN MEDICATIONS AND BENZODIAZEPINES FS SCH (21:58)
[2018-05-20] MEDS ORDERED: Potassium Phosphate 12 MMOL in Sodium Chloride 0.9% 250 ML 250 ML IV PRN (21:59)
[2018-05-20] MEDS ORDERED: Potassium Phosphate 9 MMOL in Sodium Chloride 0.9% 100 ML IVPB PRN (21:59)
[2018-05-20] MEDS ORDERED: Potassium Chloride 40 MEQ in Sodium Chloride 0.9% 250 ML 250 ML IVPB PRN (21:59)
[2018-05-20] MEDS ORDERED: Potassium Phosphate 15 MMOL in Sodium Chloride 0.9% 250 ML 250 ML IV PRN (21:59)
[2018-05-20] MEDS ORDERED: CCU ELECTROLYTE REPLACEMENT PROTOCOL FS PRN (21:59)
[2018-05-20] MEDS ORDERED: Magnesium 2 GM/NS 0.9% 100 ML 2 GM in Premix Bag 1 BAG IVPB PRN (21:59)
[2018-05-20] MEDS ORDERED: Potassium Chloride 20 MEQ TAB PO PRN (21:59)
[2018-05-20] MEDS ORDERED: Potassium Chloride 40 MEQ in Premix Bag 1 BAG IVPB PRN (21:59)
[2018-05-20] MEDS ORDERED: Magnesium Oxide 400 MG TAB PO PRN ×2 (21:59)
--- NOTE | 2018-05-20 22:31 | CT ---
CHEST CT WITH CONTRAST ABDOMEN CT WITH CONTRAST 05/20/18 HISTORY: Gastrointestinal bleed. Recent renal stent placed on Tuesday. COMPARISON: 05/12/18 FINDINGS: CHEST CT: There is an endotracheal tube, appropriately positioned. Right sided central venous catheter terminat es in the cavoatrial junction. Nasogastric tube extends down the diaphragm and is noted in the stomac h. There is consolidation involving both lower lobes due to atelectasis or pneumonia. Additional patchy opacities in the lung parenchyma are noted. There are no suspicious masses. Trachea and central bronc hi are patent. There is no pneumothorax. There are multiple acute anterior left rib fractures involvi ng the third, fourth, fifth, sixth, seventh ribs. No mediastinal mass, lymphadenopathy or hematoma. Heart size is within normal limits. No pericardial effusion. The thoracic aorta and abdominal aorta have a normal caliber. No periaortic fat stranding. ABDOMEN CT: There is evidence of cholelithiasis without evidence of cholecystitis. Portal vein is patent. The jae er, spleen, pancreas and adrenal glands have appropriate enhancement. There are bilateral nonobstructive intrarenal calculi. There is no evidence of left sided obstructive uropathy. There is a stent in the right ureter, appropriately positioned. Minimal dilatation of the right intrarenal collecting system. No gastrohepatic, retrocrural, or periportal lymphadenopathy. There is evidence of free air within the abdomen. There is evidence of pneumatosis involving the jeni lorri cardia as well as the lesser and greater curvature of the stomach. There is dilatation of multipl e small bowel loops which are fluid filled. The ileocecal junction is decompressed. A partial obstruc tive process is suspected. Normal caliber retrocecal appendix. There is fluid attenuation as well as air attenuation in a mildly distended colon. PELVIC CT: The urinary bladder is decompressed due to De La Cruz catheterization. The uterus and adnexal structures a re unremarkable. No pelvic mass or lymphadenopathy. A small amount of free air in the pelvis is note d. There is air in the right inguinal region which is presumed to be iatrogenic and may be due to pre vious vascular access/catheterization. There are no lytic or blastic lesions in the osseous structures. Chronic changes in the symphysis pub is are noted. IMPRESSION: 1. Bilateral lung parenchymal consolidation due to atelectasis, pneumonia, or aspiration. 2. Pneumatosis in the wall of the stomach. There is evidence of extraluminal air predominantly i n the left upper quadrant. 3. Dilated loops of proximal and mid small bowel with decompression of the distal small bowel. A n obstructive process cannot be excluded. 4. Fluid attenuation in the cecum and ascending colon. There is mildly distended air filled loop s of colon, nonspecific. 5. Results of the study discussed with Dr. Goldsmith 05/20/18 at 8:08 p.m. Code CR POS: [facility]
[2018-05-20] MEDS: Sodium Chloride 0.9% 1,000 ML IV SCH (22:52)
[2018-05-20 22:54] VITALS: BMI 26.7
[2018-05-20 23:08] LABS: Lactic Acid 6.2 mmol/L (0.5-2.2)
[2018-05-21] MEDS: Sodium Chloride 0.9% 1,000 ML IV SCH (04:33)
[2018-05-21 04:59] LABS: Hemoglobin 13.3 g/dL (12.0-16.0); Mean Corpuscular HGB CONC 34.2 g/dL (32.0-36.0); Mean Corpuscular Hemoglobin 30.3 pg (27.0-31.0); Mean Corpuscular Volume 88.7 fL (78.0-98.0); Mean Platelet Volume 8.2 fL (7.4-10.4); Platelet Count 501 thou/uL (130-400); RBC Distribution Width 13.7 % (11.5-14.5); Red Blood Cell (RBC) Count 4.39 mill/uL (4.20-5.40); White Blood Cell (WBC) Count 50.8 thou/uL (4.8-10.8)
[2018-05-21 05:06] LABS: Anion Gap 19 mmol/L (10-20); BUN (Urea Nitrogen) 25 mg/dL (9.8-20.1); Calc. Creatinine Clearance 47 mL/min (70-130); Calcium 9.3 mg/dL (7.8-10.44); Carbon Dioxide 19 mmol/L (23-31); Chloride 112 mmol/L (98-107); Estimated GFR-MDRD 41; Glucose 216 mg/dL (83-110); Potassium 3.6 mmol/L (3.5-5.1); Sodium 146 mmol/L (136-145)
[2018-05-21 05:20] LABS: Band 34 % (5-11); Elliptocytes SLIGHT = 2-5 cells (100X) (0-1/hpf); Lymphocytes 3 % (21-51); MDiff Complete? YES; Metamyelocyte 1 % (0-0); Monocytes 3 % (0-10); Neutrophil 59 % (42-75); PLT Morphology Comment Appears Increased
--- NOTE | 2018-05-21 07:53 | HP ---
CHIEF COMPLAINT: GI bleed. HISTORY OF PRESENT ILLNESS: This is a 72-year-old female with past medical history significant for hypertension, muscle weakness, bilateral muscle atrophy and wasting, urinary incontinence, depression, and also multiple sclerosis, presenting with acute upper GI bleed. The patient was brought in because the patient was vomiting blood and the patient became unresponsive in the ED due to the large amount of melena and that the patient was vomiting. At that point, the patient went into cardiac arrest. Chest compressions were initiated, and the patient had a return of spontaneous circulation. The patient was then intubated and the patient was admitted to the ICU. Per the daughter, the patient was recently in the hospital and the patient underwent a urethral stent placement on Tuesday for a stone which was found that was causing hydronephrosis. The patient was discharged home on 05/17/2018. REVIEW OF SYSTEMS: Unable to be obtained since the patient is intubated and sedated. PAST MEDICAL HISTORY: Hyperlipidemia, GERD, hypertension, dermatitis, venous insufficiency, multiple sclerosis, osteoporosis, urinary incontinence, dementia, and depression. PAST SURGICAL HISTORY: Left ankle ORIF in 2007, this was obtained from previous records. Any further surgical history cannot be obtained at this time since the patient is intubated. PSYCHIATRIC HISTORY: Includes depression per records. SOCIAL HISTORY: Unable to be obtained since the patient is intubated at this time. ALLERGIES: NO KNOWN DRUG ALLERGIES PER THE FAMILY. CURRENT MEDICATIONS: The patient's current medication was obtained from previous electronic medical records and from family. The patient takes: 1. Duloxetine 60 mg. 2. Chlorhexidine gluconate. 3. Atorvastatin 20 mg. 4. Aspirin 81 mg. 5. Amlodipine 5 mg. 6. Exelon transdermal. PHYSICAL EXAMINATION: VITAL SIGNS: Blood pressure is 90/40, pulse of 127, temperature of 97.9, and O2 saturation of 97 when the patient initially came in. After intubation, the patient's blood pressure was 132/80, pulse of 137, and O2 saturation of 100 on ventilator. GENERAL: At this point, the patient's GCS is 70 and the patient is comatose. The patient is able to withdraw to painful stimuli. HEENT: Normocephalic, atraumatic. The patient is currently intubated and the ET tube is in place. The patient has dry mouth around the ET tube and ET tube is putting out coffee-grounds emesis. NECK: Trachea is midline. No JVD. RESPIRATORY: At the anterior lung adams, ventilator lung sounds can be appreciated. CARDIAC: Positive S1 and S2, tachycardic at this time. ABDOMEN: Distended. Suprapubic catheter in place. EXTREMITIES: The patient has mild trace edema at the lower extremities. On the patient's right hand, there is severe infiltration at the right hand, causing hematoma. The left upper extremity is edematous. NEUROLOGIC: GCS of 70. The patient withdrawals to painful stimuli. Pupils are equally reactive to light. Bilateral pinpoint pupils noted. SKIN: Right hand is thrombosed due to infiltrated line. There is remarkable hematoma noted around the right hand and there is remarkable edema. DIAGNOTIC DATA: EKG that was obtained shows sinus tachycardia. Chest imaging that was done showed ET tube needs to be pulled back to 1 cm and a central line is in place. CT of the abdomen and pelvis showed air in the wall of stomach with viscus perforation and small bowel dilatation. LABORATORY DATA: WBC is 40,000, hemoglobin is 12.3, hematocrit is 39.3, MCV is 93.9, RDW is 13.6, and platelets are 652. PT 16.8, INR is 1.4, and PTT 22.9. Blood gas; pH is 7.01, pCO2 is 42.8, and pO2 is 221.8. Chemistry; sodium is 140, potassium is 4.5, chloride is 108, carbon dioxide of 12, anion gap of 25, BUN is 21, creatinine is 1.55, and glucose is 350. Lactic acid initially was 17.3, then now 6.2. Urinalysis; moderate amount of leukocyte esterases, negative for nitrites. ASSESSMENT AND PLAN: This is a 72-year-old female with multiple comorbidities, being admitted to the ICU for: 1. Acute respiratory failure, likely due to severe sepsis and perforated viscus. At this point, the patient has been intubated and the patient is being admitted to the ICU. We will sedate the patient appropriately and we will consult Pulmonology and Critical Care lay out carpenter for further treatment. 2. Septic shock, likely due to underlying infection, source being perforated viscus and urinary tract infection. At this point, the patient's white count is 40,000 and the patient's gap is 25 with severe metabolic acidosis. At this point, the patient has been started on fluids. A central line has been placed. We are going to start the patient on Levophed due to the fact that the patient is not able to maintain her blood pressure at this time. We will continue to trend labs. We have consulted Pulmonology/Critical Care physicians. We will follow up with their management. We will get serial ABGs and serial chest x-rays. We will get cultures and follow up on culture results. We have started the patient on vancomycin and Merrem. We will continue the patient on these antibiotics. At this point, the patient's family is considering possible comfort measures. The patient has been made DNR at this time. We will follow up with the family regarding further decisions that have to be made. 3. Acute upper gastrointestinal bleed, likely due to perforated viscus. At this point, general surgeon has been consulted, but per the family is refusing any surgical intervention at this time. We will consult GI for any conservative management. At this point, family does not really want to do any invasive care at this time. We will continue to manage the patient supportively at this time. 4. History of multiple sclerosis. At this point, the patient is intubated. We will continue current management. 5. History of hypertension. Currently, the patient is hypotensive, on pressors. We will continue the patient on pressors and we will continue current management. 6. Deep venous thrombosis and gastrointestinal prophylaxis. 7. Critical care time greater than 70 minutes. Job ID: [id number]
[2018-05-21] MEDS ORDERED: Famotidine/PF 20 mg/2ml Vial SLOW IVP SCH ×2 (09:00)
[2018-05-21] MEDS ORDERED: Famotidine 20 MG TAB PO SCH (09:00)
[2018-05-21] MEDS ORDERED: Enoxaparin Sodium 30 MG/0.3 ML SYRINGE SC SCH (09:00)
[2018-05-21] MEDS ORDERED: Morphine 4 MG/ML VIAL ONE ×3 (09:55→11:07)
[2018-05-21] MEDS ORDERED: Lorazepam 2 MG/ML VIAL ONE (10:01)
--- NOTE | 2018-05-21 10:14 | RAD ---
PORTABLE AP CHEST XRAY: DATE: 05/21/2018. HISTORY: Followup evaluation. Patient on a ventilator. COMPARISON: 05/20/2018. FINDINGS: Endotracheal tube has been withdrawn with the tip now overlying the T4-5 level and above the level of the sly. Nasogastric tube and right subclavian central venous catheter remain in place and uncha nged in position. Pacing device overlying the central chest has been removed as well. Right subclav josselyn central venous catheter is noted in place. Calcified granuloma again overlies the left upper lobe. There are bibasilar linear and parenchymal c hanges which may be related to bibasilar atelectasis, but aspiration pneumonitis or infectious proces s cannot be excluded. There is also mild prominence of the perihilar interstitial densities. Calcif ied granuloma overlies the left upper lung zone. There is persistent mild elevation of the left andrea diaphragm. No other interval change. IMPRESSION: 1. Mild increase in perihilar interstitial densities with mild linear and patchy densities at the me dial aspect of each lung base. Findings could be related to an infectious or inflammatory process. Aspiration pneumonitis could not be entirely excluded. Routine followup is recommended. 2. Lines and tubes are as described above, and endotracheal tube has been withdrawn and is now above the level of the sly. POS: [facility]
[2018-05-21] MEDS: Morphine 4 MG/ML VIAL SLOW IVP PRN ×5 (11:12→22:07)
--- NOTE | 2018-05-21 11:41 | CON ---
DATE OF CONSULTATION: 05/21/2018 SERVICE: Pulmonary Medicine. REASON FOR CONSULTATION: ICU patient. HISTORY OF PRESENT ILLNESS: The patient is a 72-year-old white female with past medical history significant for essentially nothing. She was in her usual state of health when she started having increasing abdominal discomfort and GI bleeding. In the emergency department, it was clear that the patient had a perforated viscus. She ended up coding shortly after arriving in the emergency department and got a very short round of chest compressions. She popped back pretty quickly. That being said, the patient reaffirmed that she was a DNI/DNR. They also suggested that she would not want any aggressive interventions like surgical procedures in order to correct any abnormalities at this point in her life. As such, the family was declining definitive therapy for her abdominal issue. This was in respect of the patient's underlying wishes. As such, we are now making the transition over to comfort care only. The patient cannot provide any additional elements of the history because of her encephalopathy. PAST MEDICAL HISTORY: 1. Hypertension. 2. Dyslipidemia. 3. Gastroesophageal reflux disease. 4. Multiple sclerosis. 5. Osteoporosis. 6. Urinary incontinence. 7. Dementia. 8. Major depressive disorder. PAST SURGICAL HISTORY: Left ankle open reduction and internal fixation in 2007. SOCIAL HISTORY: Unremarkable. FAMILY HISTORY: Noncontributory. ALLERGIES: NO KNOWN DRUG ALLERGIES. MEDICATIONS: List of her inpatient medications was reviewed and heavily modified. Everything was discontinued. Frequent doses of Ativan and morphine will be provided on a p.r.n. basis for discomforts. REVIEW OF SYSTEMS: Cannot be obtained because the patient has encephalopathy. PHYSICAL EXAMINATION: VITAL SIGNS: Afebrile, pulse 117, blood pressure 126/87, respirations 28, and saturation 100% on 40% FiO2 and a PEEP of 5. GENERAL: The patient is intubated. She is under the influence of no sedation. HEENT: Normocephalic and atraumatic. Sclerae are white. Conjunctivae are pink. Oral mucosa is moist without lesions. LUNGS: Decent air entry. There is no prolonged expiratory phase or wheezing. HEART: Normal rate, regular. ABDOMEN: Firm. It is distended. Bowel sounds are absent. There is some grimace with deep palpation. Rebound is present. GENITOURINARY: De L Acruz catheter in place. NEUROLOGIC: Grossly nonfocal. LABORATORY DATA: WBC 50.8, hemoglobin 13.3, and platelets 501,000. Band count is 34% on top of 53% neutrophils. INR 1.4. PH of 7.34, pCO2 of 29, and pO2 of 70.4. Creatinine 1.27. Basic metabolic profile is otherwise unremarkable. Sodium is 146. Liver function studies are unremarkable. Lactate was 17.3, but clear to 6.2. Wbc of 50 in the urinalysis. Blood cultures x2 are unremarkable. IMAGING DATA: CT of the chest, abdomen, and pelvis demonstrates no acute chest abnormalities. The abdomen has extensive free air throughout the belly. Pneumatosis is in the wall of the stomach. There is extraluminal air. Dilated loops of proximal small bowel with decompressed distal, suggests an obstructive pathology. ASSESSMENT: 1. Acute hypoxic respiratory failure. 2. Septic shock. 3. Gross peritonitis secondary to perforated viscus. 4. Acute kidney injury. 5. Dementia. 6. Debility. DISCUSSION AND PLAN: The patient has requested that we respect the patient's wishes by transitioning over to comfort care only. They understand that the patient will be passing away during this hospital stay. All medications and interventions will be discontinued except for p.r.n. morphine and Ativan. Once the family is ready, we will go ahead and extubate the patient, and discontinue the Levophed. If she continues to breathe on for more than a couple of hours, we will transition into a more comfortable setting. CRITICAL CARE TIME: 30 minutes. Job ID: [id number]
[2018-05-22] MEDS: Morphine 4 MG/ML VIAL SLOW IVP PRN ×9 (00:43→16:42)
[2018-05-22 07:07] VITALS: BP 110/58; TEMP 102.9
[2018-05-22] MEDS: Lorazepam 2 MG/ML VIAL SLOW IVP PRN ×4 (12:39→16:41)
--- NOTE | 2018-05-22 17:38 | PDOC.EVN ---
Event Note - Event Note Event Note: Patient seen and examined. Family is in with the Hospice provider service representative now. Patient has mildly labored breathing and is slightly tachypneic. She is otherwise not responsive. Lungs have harsh rales throughout. Heart is regular. Abdomen non-distended. Anticpate transition to the Hospice service today for perforated viscous and patient's expressed wishes to not do anything aggressive in treatment.
--- NOTE | 2018-05-22 23:05 | DIS ---
DATE OF ADMISSION: 05/20/2018 DATE OF DISCHARGE: 05/21/2018 SUMMARY DISCHARGE DIAGNOSES: 1. Perforated GI viscus. 2. Septic shock. 3. Acute respiratory failure. 4. Upper gastrointestinal bleeding, secondary to presumed perforated viscus. 5. History of multiple sclerosis. 6. History of hypertension. 7. History of dementia. 8. History of depression. 9. History of venous insufficiency. 10. History of urinary incontinence. 11. History of osteoporosis. 12. History of hyperlipidemia. 13. History of gastroesophageal reflux disorder. BRIEF HISTORY: The patient is a 72-year-old female, who presented with hematemesis and unresponsiveness. The patient was subsequently stabilized, intubated, and had a CT scan of the abdomen and pelvis that showed free air in the wall of the stomach with apparent viscus perforation and small bowel dilatation. While the patient's white count was 40,000, pH was 7.0. HOSPITAL COURSE: The patient was admitted to the ICU. She was seen in consultation by Dr. Hand. The patient was able to adequately communicate that she did not want to pursue aggressive treatment including surgical options and affirmed that she was do not resuscitate. Therefore, the patient was extubated and converted to comfort measures. She was transferred to the Oncology unit, where hospice was consulted. The patient was moved to the hospice service at [facility] was full and the patient remained here and will be under the care of hospice services going forward. Job ID: [id number]
== END 2018-05-22 17:00 | disposition hospice, inpatient (51) | DRG 871 ==
LOC: ERS 18:30 → CCU 20:58 → ONC 05-21 12:23
PROVIDERS: ADMIT Internal Medicine; ATTEND Internal Medicine
PROC: 3E033XZ Introduction of Vasopressor into Peripheral Vein, Percutaneous Approach (ICD-10-PCS; principal; 2018-05-20)
PROC: 5A12012 Performance of Cardiac Output, Single, Manual (ICD-10-PCS; 2018-05-20)
PROC: 0BH17EZ Insertion of Endotracheal Airway into Trachea, Via Natural or Artificial Opening (ICD-10-PCS; 2018-05-20)
PROC: 5A1945Z Respiratory Ventilation, 24-96 Consecutive Hours (ICD-10-PCS; 2018-05-20)
PROC: 02HV33Z Insertion of Infusion Device into Superior Vena Cava, Percutaneous Approach (ICD-10-PCS; 2018-05-20)
PROC: 30233N1 Transfusion of Nonautologous Red Blood Cells into Peripheral Vein, Percutaneous Approach (ICD-10-PCS; 2018-05-21)
DX: A41.9 Sepsis, unspecified organism (principal); R65.21 Severe sepsis with septic shock; K63.1 Perforation of intestine (nontraumatic); K65.8 Other peritonitis; J96.01 Acute respiratory failure with hypoxia; I46.9 Cardiac arrest, cause unspecified; N17.9 Acute kidney failure, unspecified; N39.0 Urinary tract infection, site not specified; E87.2 Acidosis; K92.2 Gastrointestinal hemorrhage, unspecified; Z66 Do not resuscitate; F03.90 Unspecified dementia, unspecified severity, without behavioral disturbance, psychotic disturbance, mood disturbance, and anxiety; R53.81 Other malaise; Z51.5 Encounter for palliative care; F32.9 Major depressive disorder, single episode, unspecified; I87.2 Venous insufficiency (chronic) (peripheral); R32 Unspecified urinary incontinence; M81.0 Age-related osteoporosis without current pathological fracture; E78.5 Hyperlipidemia, unspecified; K21.9 Gastro-esophageal reflux disease without esophagitis; Z79.82 Long term (current) use of aspirin; G35 Multiple sclerosis; I10 Essential (primary) hypertension
CPT/HCPCS: 31500; 36415; 36416; 36430; 36556; 71045; 71260; 74177; 80048; 80053; 81003; 81015; 82330; 82803; 82805; 83605; 83690; 84484; 85025; 85610; 85730; 86850; 86900; 86901; 87040; 87086; 87149; 92950; 93005; 94002; 94003; 96365; 96366; 96367; 96368; 96375; 96376; J0171; J2060; J2185; J2270; J2704; J2930; J3010; J3370; J7050; P9016; S0028

== ENCOUNTER 2018-05-22 17:15 | Inpatient (IN) | payer MEDICARE, MEDICAID ==
[2018-05-22 17:24] VITALS: BP 110/58; TEMP 102.9
== END 2018-05-22 17:16 | disposition expired | DRG 951 ==
LOC: ONC 17:15
PROVIDERS: ADMIT Family Medicine; ATTEND Family Medicine
DX: Z51.5 Encounter for palliative care (principal); A41.9 Sepsis, unspecified organism; R65.21 Severe sepsis with septic shock; J96.01 Acute respiratory failure with hypoxia; K92.2 Gastrointestinal hemorrhage, unspecified; G35 Multiple sclerosis; I10 Essential (primary) hypertension; R32 Unspecified urinary incontinence; F32.9 Major depressive disorder, single episode, unspecified; E78.5 Hyperlipidemia, unspecified; K21.9 Gastro-esophageal reflux disease without esophagitis; L30.9 Dermatitis, unspecified; M81.0 Age-related osteoporosis without current pathological fracture; F03.90 Unspecified dementia, unspecified severity, without behavioral disturbance, psychotic disturbance, mood disturbance, and anxiety; Z79.82 Long term (current) use of aspirin; Z66 Do not resuscitate